=== PATIENT | female | born 1940 | race Caucasian/White ===

== ENCOUNTER 2024-07-08 02:18 | Inpatient (IN) | payer MEDICARE, BC ==
--- NOTE | 2024-07-08 02:56 | ED ---
General Adult HPI - General Chief complaint: Recheck/Abnormal Lab/Rx Stated complaint: Fall, UTI Time Seen by Provider: 07/08/24 02:40 Source: EMS Mode of arrival: EMS - History of Present Illness Initial comments: 84-year-old female who presents to the emergency department as a transfer from [facility]. Patient was taken into their facility as a trauma. She came in from assisted living facility. It was reported that the patient was ambulating and assisting her when their walkers gotten tangled and she fell to the ground. She landed on her right side. States she had pain in her knee. Denies head injury. No neck or back pain. Did not lose consciousness. She does take Coumadin for A-fib. At that facility the patient did have laboratory studies, CT head and neck. Also had x-rays of the chest and knee. No traumatic injuries although patient was found to have an TOMMY, increased lactic acid and a UTI. Troponin was 0.037. They felt that the patient needed to be transferred for higher level of care and therefore transfer the patient to our facility. Patient arrives with no complaints. - Related Data Home Medications Medication Instructions Recorded Confirmed Acetaminophen Tab [Tylenol] 650 mg PO Q4H PRN 07/08/24 07/08/24 Aspirin 81 mg PO DAILY 07/08/24 07/08/24 Calcium Carbonate [Tums] 1,000 mg PO Q2H PRN MDD 4 doses 07/08/24 07/08/24 Furosemide [Lasix] 40 mg PO DAILY 07/08/24 07/08/24 Ipratropium-Albuterol Nebulize 3 ml INHALATION RT-Q6H PRN 07/08/24 07/08/24 [Duoneb 0.5 mg-3 mg/3 ml Soln] Losartan Potassium [Cozaar] 100 mg PO DAILY 07/08/24 07/08/24 Magnesium Hydroxide [Milk of 2,400 mg PO DAILY PRN 07/08/24 07/08/24 Magnesia] Ondansetron Odt [Zofran Odt] 4 mg PO Q4H PRN 07/08/24 07/08/24 Potassium Chloride [Klor-Con M20] 20 meq PO DAILY 07/08/24 07/08/24 Pravastatin Sodium [Pravachol] 40 mg PO HS 07/08/24 07/08/24 Primidone 50 mg PO DAILY 07/08/24 07/08/24 Primidone [Mysoline] 100 mg PO HS 07/08/24 07/08/24 Propranolol HCl [Propranolol HCl 120 mg PO DAILY 07/08/24 07/08/24 ER] Propylene Glycol/Peg 400 [Systane 1 drop BOTH EYES TID 07/08/24 07/08/24 Ultra 0.4-0.3% Eye Drp] Sennosides/Docusate Sodium [Senna 1 tab PO DAILY PRN 07/08/24 07/08/24 Plus 8.6-50 mg Tablet] Sertraline [Zoloft] 50 mg PO DAILY 07/08/24 07/08/24 Warfarin Sodium 8 mg PO DAILY@1700 07/08/24 07/08/24 bisacodyL [Dulcolax] 10 mg RECTAL DAILY PRN 07/08/24 07/08/24 guaiFENesin SYRUP 100MG/5ML 100 mg PO Q4H PRN 07/08/24 07/08/24 [Robitussin] hydroCHLOROthiazide [Hydrodiuril] 25 mg PO DAILY 07/08/24 07/08/24 metFORMIN HCL [Glucophage] 1,000 mg PO BID 07/08/24 07/08/24 polyethylene glycoL 3350 [Miralax] 17 gm PO DAILY PRN 07/08/24 07/08/24 Allergies Allergy/AdvReac Type Severity Reaction Status Date / Time peanut Allergy Unknown Verified 07/08/24 11:17 atorvastatin [From Lipitor] AdvReac Mild Muscle Verified 07/08/24 11:17 Aches Review of Systems ROS Statement: Those systems with pertinent positive or pertinent negative responses have been documented in the HPI. ROS Other: All systems not noted in ROS Statement are negative. Past Medical History Past Medical History: Atrial Fibrillation, Hyperlipidemia, Hypertension Past Surgical History: No Surgical Hx Reported Past Alcohol Use History: None Reported Past Drug Use History: None Reported General Exam General appearance: alert, in no apparent distress Head exam: Present: atraumatic, normocephalic, normal inspection Eye exam: Present: normal appearance, PERRL, EOMI. Absent: scleral icterus, conjunctival injection, periorbital swelling ENT exam: Present: normal exam, mucous membranes moist Neck exam: Present: normal inspection. Absent: tenderness, meningismus, lymphadenopathy Respiratory exam: Present: normal lung sounds bilaterally. Absent: respiratory distress, wheezes, rales, rhonchi, stridor Cardiovascular Exam: Present: regular rate, normal rhythm, normal heart sounds. Absent: systolic murmur, diastolic murmur, rubs, gallop, clicks GI/Abdominal exam: Present: soft, normal bowel sounds. Absent: distended, tenderness, guarding, rebound, rigid Extremities exam: Present: full ROM, tenderness (To the right knee. Patient does have compression wrap in place. 2+ DP and PT pulses. Compartments are soft), normal capillary refill. Absent: pedal edema, joint swelling, calf tenderness Back exam: Present: normal inspection Neurological exam: Present: alert, oriented X3, CN II-XII intact Psychiatric exam: Present: normal affect, normal mood Skin exam: Present: warm, dry, intact, normal color. Absent: rash Course Vital Signs 07/08/24 07/08/24 07/08/24 02:35 04:36 09:18 Temperature 98.3 F 98.5 F Pulse Rate 58 L 57 L 57 L Respiratory 16 16 24 Rate Blood Pressure 181/91 166/73 146/74 O2 Sat by Pulse 96 97 94 L Oximetry 07/08/24 12:34 Temperature 98.7 F Pulse Rate 60 Respiratory 20 Rate Blood Pressure 150/55 O2 Sat by Pulse 95 Oximetry Medical Decision Making - Medical Decision Making Was pt. sent in by a medical professional or institution (WILL Zhou, LAND AGENT, urgent care, hospital, or longterm...) When possible be specific @ -Patient sent from [facility] Did you speak to anyone other than the patient for history (EMS, parent, family, police, friend...)? What history was obtained from this source @ -I spoke with transferring provider from [facility] Did you review nursing and triage notes (agree or disagree)? Why? @ -I reviewed and agree with nursing and triage notes Were old charts reviewed (outside hosp., previous admission, EMS record, old EKG, old radiological studies, urgent care reports/EKG's, longterm records)? Report findings @ -I reviewed the transfer paperwork from [facility]. This includes the patient's EKG which demonstrates A-fib with a slow ventricular rate. Patient had blood work and a urinalysis. Urinalysis did demonstrate few bacteria with 1+ leukocytes. Troponin was 0.037. Lactic acid was 3.4. Creatinine was 1.6. Patient was given Rocephin and a liter bolus normal saline. 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 CT of the head and neck demonstrated no acute findings but x-ray of the right knee demonstrates no acute findings Differential Diagnosis (chest pain, altered mental status, abdominal pain women, abdominal pain men, vaginal bleeding, weakness, fever, dyspnea, syncope, headache, dizziness, GI bleed, back pain, seizure, CVA, palpatations, mental health, musculoskeletal)? @ -Differential Musculoskeletal Muscular strain, contusion, ligament sprain, fracture, arthritis, septic arthritis, bursitis, cellulitis, muscle spasm, nerve compression, DVT, arterial occlusion, herpes zoster, electrolyte abnormality, tumor.... This is not meant to be in all inclusive list EKG interpreted by me (3pts min.). @ -Yes and demonstrates A-fib with a rate of 60. QRS 93. QTc of 396. No acute ST segment elevations or depressions X-rays interpreted by me (1pt min.). @ -None done CT interpreted by me (1pt min.). @ -None done U/S interpreted by me (1pt. min.). @ -None done What testing was considered but not performed or refused? (CT, X-rays, U/S, labs)? Why? @ -None What meds were considered but not given or refused? Why? @ -None Did you discuss the management of the patient with other professionals (professionals i.e. , PA, LAND AGENT, lab, RT, psych nurse, social worker psychiatric, hat lining paster, teacher, education officer, case management assistant)? Give summary @ -Spoke with Dr. Badillo for admission Was smoking cessation discussed for >3mins.? @ -No Was critical care preformed (if so, how long)? @ -No Were there social determinants of health that impacted care today? How? (Homelessness, low income, unemployed, alcoholism, drug addiction, transportation, low edu. Level, literacy, decrease access to med. care, longterm, rehab)? @ -Patient resides in rehab Was there de-escalation of care discussed even if they declined (Discuss DNR or withdrawal of care, Hospice)? DNR status @ -No What co-morbidities impacted this encounter? (DM, HTN, Smoking, COPD, CAD, Cancer, CVA, ARF, Chemo, Hep., AIDS, mental health diagnosis, sleep apnea, morbid obesity)? @ -A-fib on anticoagulation Was patient admitted / discharged? Hospital course, mention meds given and ro luis felipe, prescriptions, significant lab abnormalities, going to OR and other pertinent info. @ -Upon arrival patient seen and evaluated in bed 1. I did review the patient's transfer packet. I did repeat lactic acid and troponin levels. Patient is currently awaiting a bed on the floor in stable condition. I spoke with Dr. Badillo for the admission Undiagnosed new problem with uncertain prognosis? @ -No Drug Therapy requiring intensive monitoring for toxicity (Heparin, Nitro, Insulin, Cardizem)? @ -No Were any procedures done? @ -No Diagnosis/symptom? @ -Acute fall, right knee pain, TOMMY, abnormal UA Acute, or Chronic, or Acute on Chronic? @ -Acute Uncomplicated (without systemic symptoms) or Complicated (systemic symptoms)? @ -Complicated Side effects of treatment? @ -Allergic reaction Exacerbation, Progression, or Severe Exacerbation? @ -No Poses a threat to life or bodily function? How? (Chest pain, USA, SD, pneumonia, PE, COPD, DKA, ARF, appy, cholecystitis, CVA, Diverticulitis, Homicidal, Suicidal, threat to staff... and all critical care pts) @ -No - Lab Data Result diagrams: 07/08/24 04:24 07/08/24 04:24 Disposition Clinical Impression: Fall, Elevated troponin I level, Right knee pain, UTI (urinary tract infection), TOMMY (acute kidney injury) Disposition: ADMITTED IP TO THIS HOSP Condition: Stable Is patient prescribed a controlled substance at d/c from ED?: No Time of Disposition: 03:48 Decision to Admit Reason: Admit from EC Decision Date: 07/08/24 Decision Time: 03:48
[2024-07-08] MEDS ORDERED: NALOXONE 0.4 MG/ML 1 ML VIAL IV PRN (03:48)
[2024-07-08] MEDS: SODIUM CHLORIDE 0.9% 1,000 ML IV SCH (04:35)
[2024-07-08 04:47] LABS: Basophils # (A) 0.05 10*3/uL (0.00-0.10); Basophils % (A) 0.5 %; Eosinophils # (A) 0.44 10*3/uL (0.04-0.35); Eosinophils % (A) 4.4 %; HCT 33.1 % (37.2-46.3); HGB 11.2 g/dL (12.0-15.0); Lymphocytes # (A) 1.06 10*3/uL (0.90-5.00); Lymphocytes % (A) 10.6 %; MCH 31.9 pg (27.0-32.0); MCHC 33.8 g/dL (32.0-37.0); MCV 94.3 fL (80.0-97.0); Monocytes # (A) 0.83 10*3/uL (0.20-1.00); Monocytes % (A) 8.3 %; Neutrophils # (A) 7.61 10*3/uL (1.80-7.70); Neutrophils % (A) 75.8 %; Platelet Count 160 10*3/uL (140-440); RBC 3.51 10*6/uL (4.10-5.20); RDW 13.4 % (11.5-14.5); WBC 10.03 10*3/uL (4.50-10.00)
[2024-07-08 05:10] LABS: ALT 29 U/L (4-34); AST 33 U/L (14-36); African American GFR (CKD) 36 (>60 ml/min/1.73 sqM); Albumin 3.7 g/dL (3.5-5.0); Alkaline Phosphatase 79 U/L (38-126); Anion Gap 7 mmol/L; Blood Urea Nitrogen 50 mg/dL (7-17); Calcium 9.4 mg/dL (8.4-10.2); Carbon Dioxide 35 mmol/L (22-30); Chloride 93 mmol/L (98-107); Glucose 108 mg/dL (74-99); Non-African American GFR(CKD) 31 (>60 ml/min/1.73 sqM); Potassium 3.5 mmol/L (3.5-5.1); Sodium 135 mmol/L (137-145); Total Bilirubin 0.6 mg/dL (0.2-1.3); Total Protein 6.6 g/dL (6.3-8.2)
[2024-07-08] MEDS: SODIUM CHLORIDE 0.9% 1,000 ML IV ONE (05:54)
--- NOTE | 2024-07-08 12:59 | P.CRDCN ---
History of Present Illness Consult date: 07/08/24 Reason for Consult (text): Elevated troponin History of present illness: This is an 84-year-old female, does not follow in our office with a past medical history of persistent atrial fibrillation, hypertension, hyperlipidemia. We have been asked to evaluate the patient for elevated troponins. Patient was initially seen at [facility] after a fall when her walker was tangled up with her 's walker. She had a fall onto her right side with right knee pain. No head injury. Patient did not lose consciousness. She underwent CAT scan of the head and neck as well as x-rays of the chest and knee that were all negative. She was found to have TOMMY and lactic acidosis and UTI. Her troponin was elevated and thus patient was transferred to [facility] for further evaluation. Patient is unable to provide any history. Blood pressure 150/55, heart rate in the 50s, pulse ox 95% on 2 L nasal cannula, afebrile. Patient is status post 1 L of IV fluids. She is seen today in the emergency center waiting for a bed on the observation unit. -EKG: Atrial fibrillation at 60 bpm. -Chest x-ray: Negative reported at [facility]. -Laboratory studies: WBC 10, hemoglobin 11.2, sodium 135, potassium 3.5, CO2 35, BUN 50 creatinine 1.53. Lactic acid 2.8 followed by 2.0. Troponin 0.031, 0.042 and 0.043. Liver function test are within normal limits. -Home cardiac medications: Aspirin 81 mg daily, Lasix 40 mg daily, hydrochlo rothiazide 25 mg daily, losartan 100 mg daily, potassium chloride 20 mill equivalents daily, pravastatin 40 mg at bedtime, propranolol 120 mg daily, warfarin 8 mg daily. Review Of Systems: At the time of my exam: Unable to obtain from the patient. Physical examination: Gen: This is 84-year-old female in no acute respiratory distress. VS: reviewed HEENT: Head is atraumatic, normocephalic. Pupils equal, round. Sclerae is anicteric. NECK: Supple. No JVD. LUNGS: Clear to auscultation. No wheezes or rhonchi. No intercostal retractions. HEART: Irregular rate and rhythm. Mild systolic murmur at the right sternal border. ABDOMEN: Soft No tenderness. EXTREMITIES: 2+ bilateral lower extremity edema appears to be chronic. No calf tenderness. NEUROLOGICAL: Patient is awake, confused. Assessment: Mechanical fall with no LOC Flat troponin elevation secondary to acute kidney injury Acute kidney injury Lactic acidosis Persistent atrial fibrillation with controlled rate Failure to thrive Hypertension Hyperlipidemia Chronic lower extremity edema Possible metabolic encephalopathy, baseline mentation unknown Plan: Resume patient's home cardiac medications with the following changes Hold aspirin, diuretics including Lasix and hydrochlorothiazide, beta-mihir Resume warfarin, pharmacy to dose Decrease losartan to 50 mg daily No plan for IV heparin Obtain proBNP, A1c, TSH, lipid panel Obtain 2-D echocardiogram and Doppler study to assess cardiac structure and function Further recommendations to follow based upon clinical course Thank you kindly for this consultation. Nurse practitioner note has been reviewed, I agree with documented findings and plan of care. Patient was seen and examined. Past Medical History Past Medical History: Atrial Fibrillation, Hyperlipidemia, Hypertension Past Surgical History: No Surgical Hx Reported Past Alcohol Use History: None Reported Past Drug Use History: None Reported Medications and Allergies Home Medications Medication Instructions Recorded Confirmed Type Acetaminophen Tab [Tylenol] 650 mg PO Q4H PRN 07/08/24 07/08/24 History Aspirin 81 mg PO DAILY 07/08/24 07/08/24 History Calcium Carbonate [Tums] 1,000 mg PO Q2H PRN MDD 4 doses 07/08/24 07/08/24 History Furosemide [Lasix] 40 mg PO DAILY 07/08/24 07/08/24 History Ipratropium-Albuterol Nebulize 3 ml INHALATION RT-Q6H PRN 07/08/24 07/08/24 History [Duoneb 0.5 mg-3 mg/3 ml Soln] Losartan Potassium [Cozaar] 100 mg PO DAILY 07/08/24 07/08/24 History Magnesium Hydroxide [Milk of 2,400 mg PO DAILY PRN 07/08/24 07/08/24 History Magnesia] Ondansetron Odt [Zofran Odt] 4 mg PO Q4H PRN 07/08/24 07/08/24 History Potassium Chloride [Klor-Con M20] 20 meq PO DAILY 07/08/24 07/08/24 History Pravastatin Sodium [Pravachol] 40 mg PO HS 07/08/24 07/08/24 History Primidone 50 mg PO DAILY 07/08/24 07/08/24 History Primidone [Mysoline] 100 mg PO HS 07/08/24 07/08/24 History Propranolol HCl [Propranolol HCl 120 mg PO DAILY 07/08/24 07/08/24 History ER] Propylene Glycol/Peg 400 [Systane 1 drop BOTH EYES TID 07/08/24 07/08/24 History Ultra 0.4-0.3% Eye Drp] Sennosides/Docusate Sodium [Senna 1 tab PO DAILY PRN 07/08/24 07/08/24 History Plus 8.6-50 mg Tablet] Sertraline [Zoloft] 50 mg PO DAILY 07/08/24 07/08/24 History Warfarin Sodium 8 mg PO DAILY@1700 07/08/24 07/08/24 History bisacodyL [Dulcolax] 10 mg RECTAL DAILY PRN 07/08/24 07/08/24 History guaiFENesin SYRUP 100MG/5ML 100 mg PO Q4H PRN 07/08/24 07/08/24 History [Robitussin] hydroCHLOROthiazide [Hydrodiuril] 25 mg PO DAILY 07/08/24 07/08/24 History metFORMIN HCL [Glucophage] 1,000 mg PO BID 07/08/24 07/08/24 History polyethylene glycoL 3350 [Miralax] 17 gm PO DAILY PRN 07/08/24 07/08/24 History Allergies Allergy/AdvReac Type Severity Reaction Status Date / Time peanut Allergy Unknown Verified 07/08/24 11:17 atorvastatin [From Lipitor] AdvReac Mild Muscle Verified 07/08/24 11:17 Aches Physical Exam Vitals: Vital Signs Temp Pulse Resp BP Pulse Ox 07/08/24 09:18 98.5 F 57 L 24 146/74 94 L 07/08/24 04:36 57 L 16 166/73 97 07/08/24 02:35 98.3 F 58 L 16 181/91 96 Intake and Output 07/07/24 07/08/24 07/08/24 22:59 06:59 14:59 Other: Weight 61.235 kg Results 07/08/24 04:24 07/08/24 04:24 Cardiac Enzymes 07/08/24 07/08/24 07/08/24 Range/Units 04:24 04:24 06:06 AST 33 (14-36) U/L Troponin I 0.031 0.042 H* (0.000-0.034) ng/mL 07/08/24 Range/Units 09:00 AST (14-36) U/L Troponin I 0.043 H* (0.000-0.034) ng/mL CBC 07/08/24 Range/Units 04:24 WBC 10.03 H (4.50-10.00) 10*3/uL RBC 3.51 L (4.10-5.20) 10*6/uL Hgb 11.2 L (12.0-15.0) g/dL Hct 33.1 L (37.2-46.3) % Plt Count 160 (140-440) 10*3/uL Comprehensive Metabolic Panel 07/08/24 Range/Units 04:24 Sodium 135 L (137-145) mmol/L Potassium 3.5 (3.5-5.1) mmol/L Chloride 93 L (98-107) mmol/L Carbon Dioxide 35 H (22-30) mmol/L BUN 50 H (7-17) mg/dL Creatinine 1.53 H (0.52-1.04) mg/dL Glucose 108 H (74-99) mg/dL Calcium 9.4 (8.4-10.2) mg/dL AST 33 (14-36) U/L ALT 29 (4-34) U/L Alkaline Phosphatase 79 (38-126) U/L Total Protein 6.6 (6.3-8.2) g/dL Albumin 3.7 (3.5-5.0) g/dL Current Medications Generic Name Dose Route Start Last Admin Trade Name Freq PRN Reason Stop Dose Admin Acetaminophen 650 mg 07/08/24 03:48 Acetaminophen Tab 325 Mg Tab PO Q6HR PRN Mild Pain or Fever > 100.5 Sodium Chloride 1,000 mls @ 75 mls/hr 07/08/24 04:00 07/08/24 04:35 Saline 0.9% IV 75 mls/hr .[id number] ARLENE Administration Naloxone HCl 0.2 mg 07/08/24 03:48 Naloxone 0.4 Mg/Ml 1 Ml Vial IV Q2M PRN Opioid Reversal Intake and Output 07/07/24 07/08/24 07/08/24 22:59 06:59 14:59 Other: Weight 61.235 kg 07/08/24 04:24 07/08/24 04:24
[2024-07-08 13:26] LABS: INR 1.6 (<1.2); Prothrombin Time 16.4 sec (10.0-12.5)
[2024-07-08] MEDS: LOSARTAN 50 MG TAB PO SCH (17:27)
[2024-07-08] MEDS: WARFARIN 2 MG TAB PO SCH (17:28)
[2024-07-08 19:09] LABS: Chol/HDL Ratio 1.66 Ratio; LDL Cholesterol,Calculated 46.2 mg/dL (0.0-131.0); VLDL Calculation 16.06 mg/dL (5.00-40.00)
[2024-07-08 21:43] LABS: NT-Pro-B-Type Natriuretic Pept 4601 pg/mL (0-450)
[2024-07-09 04:49] LABS: INR 1.4 (<1.2)
[2024-07-09 10:27] LABS: Basophils # (A) 0.04 X 10*3/uL (0.00-0.10); Basophils % (A) 0.7 %; Eosinophils # (A) 0.47 X 10*3/uL (0.04-0.35); Eosinophils % (A) 7.8 %; HCT 28.6 % (37.2-46.3); HGB 9.2 g/dL (12.0-15.0); Lymphocytes # (A) 1.48 X 10*3/uL (0.90-5.00); Lymphocytes % (A) 24.4 %; MCH 31.3 pg (27.0-32.0); MCHC 32.2 g/dL (32.0-37.0); MCV 97.3 FL (80.0-97.0); Monocytes # (A) 0.58 X 10*3/uL (0.20-1.00); Monocytes % (A) 9.6 %; NRBC Per 100 WBC 0 X 10*3/uL (0.00-0.01); Neutrophils # (A) 3.48 X 10*3/uL (1.80-7.70); Neutrophils % (A) 57.3 %; Platelet Count 162 X 10*3/uL (140-440); RBC 2.94 X 10*6/uL (4.10-5.20); RDW 13.8 % (11.5-14.5); WBC 6.06 X 10*3/uL (4.50-10.00)
[2024-07-09] MEDS ORDERED: guaiFENesin SYRUP 100MG/5ML 200 MG/10 ML CUP PO PRN (10:40)
[2024-07-09] MEDS ORDERED: polyethylene glycoL 3350 17 GM POWD.PACK PO PRN (10:40)
[2024-07-09] MEDS ORDERED: ONDANSETRON ODT 4 MG TAB PO PRN (10:40)
[2024-07-09] MEDS ORDERED: MAGNESIUM HYDROXIDE 2,400 MG/30 ML CUP PO PRN (10:40)
[2024-07-09] MEDS ORDERED: SENNOSIDES-DOCUSATE SODIUM 1 EACH TAB PO PRN (10:40)
[2024-07-09] MEDS ORDERED: IPRATROPIUM-ALBUTEROL 3 ML NEB INHALATION PRN (10:40)
[2024-07-09 11:17] LABS: BUN/Creat Ratio 26.86 Ratio (12.00-20.00); Blood Urea Nitrogen 37.6 mg/dL (9.0-27.0); Calcium 8.3 mg/dL (8.7-10.3); Carbon Dioxide 31.8 mmol/L (21.6-31.8); Chloride 100 mmol/L (96-109); Glucose 121 mg/dL (70-110); Potassium 3.2 mmol/L (3.5-5.5); Sodium 142 mmol/L (135-145)
--- NOTE | 2024-07-09 11:18 | P.PN ---
Subjective Progress Note Date: 07/09/24 Reason for Consult (text): Elevated troponin History of present illness: This is an 84-year-old female, does not follow in our office with a past medical history of persistent atrial fibrillation, hypertension, hyperlipidemia. We have been asked to evaluate the patient for elevated troponins. Patient was initially seen at [facility] after a fall when her walker was tangled up with her 's walker. She had a fall onto her right side with right knee pain. No head injury. Patient did not lose consciousness. She underwent CAT scan of the head and neck as well as x-rays of the chest and knee that were all negative. She was found to have TOMMY and lactic acidosis and UTI. Her troponin was elevated and thus patient was transferred to [facility] for further evaluation. Patient is unable to provide any history. Blood pressure 150/55, heart rate in the 50s, pulse ox 95% on 2 L nasal cannula, afebrile. Patient is status post 1 L of IV fluids. She is seen today in the emergency center waiting for a bed on the observation unit. -EKG: Atrial fibrillation at 60 bpm. -Chest x-ray: Negative reported at [facility]. -Laboratory studies: WBC 10, hemoglobin 11.2, sodium 135, potassium 3.5, CO2 35, BUN 50 creatinine 1.53. Lactic acid 2.8 followed by 2.0. Troponin 0.031, 0.042 and 0.043. Liver function test are within normal limits. -Home cardiac medications: Aspirin 81 mg daily, Lasix 40 mg daily, hydrochlorothiazide 25 mg daily, losartan 100 mg daily, potassium chloride 20 mill equivalents daily, pravastatin 40 mg at bedtime, propranolol 120 mg daily, warfarin 8 mg daily. 07/08 Patient seen and examined on the observation unit. Blood pressure 147/58, heart rate in the 50s and 60s, pulse ox 99% on 2 L nasal cannula. Patient has been afebrile. Triglycerides 80, cholesterol 156, LDL 46, proBNP 4601. A1c 5.6 INR 1.4. Patient's mental status is much improved from yesterday. She states she feels well this morning except that her leg is bothering her from the fall. Patient denies chest pain no chest pressure, no shortness of breath. Noted that her previous creatinine was 1.6 at [place] we will plan to resume Lasix tomorrow. Physical examination: Gen: This is 84-year-old female in no acute respiratory distress. VS: reviewed HEENT: Head is atraumatic, normocephalic. Pupils equal, round. Sclerae is anicteric. NECK: Supple. No JVD. LUNGS: Clear to auscultation. No wheezes or rhonchi. No intercostal retractions. HEART: Irregular rate and rhythm. Mild systolic murmur at the right sternal border. ABDOMEN: Soft No tenderness. EXTREMITIES: 2+ bilateral lower extremity edema appears to be chronic. No calf tenderness. NEUROLOGICAL: Patient is awake, alert and oriented. Assessment: Mechanical fall with no LOC Flat troponin elevation secondary to acute kidney injury Acute kidney injury Lactic acidosis Persistent atrial fibrillation with controlled rate Failure to thrive Hypertension Hyperlipidemia Chronic lower extremity edema Possible metabolic encephalopathy, resolved Plan: Continue patient's home cardiac medications with the following changes Hold aspirin and hydrochlorothiazide Resume losartan back to 100 mg daily- her home dose Resume Lasix tomorrow Continue warfarin, pharmacy to dose Obtain 2-D echocardiogram and Doppler study to assess cardiac structure and function If echocardiogram is unremarkable, patient is cleared for discharge and may follow-up with her primary channel rougher. Nurse practitioner note has been reviewed, I agree with documented findings and plan of care. Patient was seen and examined. Objective - Vital Signs Vital signs: Vital Signs Temp 97.3 F L 07/09/24 07:25 Pulse 56 L 07/09/24 07:25 Resp 15 07/09/24 07:25 BP 147/58 07/09/24 07:25 Pulse Ox 99 07/09/24 07:25 FiO2 Intake & Output 07/08/24 07/09/24 07/09/24 18:59 06:59 18:59 Intake Total 540 180 Balance 540 180 Weight 61.235 kg 67 kg Intake: Oral 540 180 Other: Voiding Method Toilet Toilet # Voids 1 2 # Bowel Movements 1 - Labs CBC & Chem 7: 07/09/24 03:46 07/08/24 04:24 Labs: Abnormal Lab Results - Last 24 Hours (Table) 07/08/24 07/08/24 07/08/24 Range/Units 09:00 13:10 13:10 PT 16.4 H (10.0-12.5) sec INR 1.6 H (<1.2) Troponin I 0.043 H* (0.000-0.034) ng/mL NT-Pro-B Natriuret Pep 4601 H (0-450) pg/mL HDL Cholesterol 93.70 H (40.00-60.00) mg/dL 07/09/24 Range/Units 03:46 PT 15.0 H (10.0-12.5) sec INR 1.4 H (<1.2) Troponin I (0.000-0.034) ng/mL NT-Pro-B Natriuret Pep (0-450) pg/mL HDL Cholesterol (40.00-60.00) mg/dL
[2024-07-09] MEDS: LOSARTAN 50 MG TAB PO STA (11:20)
[2024-07-09] MEDS: PRIMIDONE 50 MG TAB PO SCH ×2 (11:20→20:49)
[2024-07-09] MEDS: SERTRALINE 50 MG TAB PO SCH (11:20)
--- NOTE | 2024-07-09 12:58 | CA ---
Transthoracic Echo Report Name: Christie Her Age: 84 Gender: F : 1940 Exam Date: 07/09/2024 09:09 Exam Location: [facility] Ht (in): 62 Wt (lb): 147 Ordering Physician: Amanda Gutiérrez Attending/Referring Phys: [id number], Marla Case Checker Gracie Walls RDCS Procedure CPT: Indications: LVF Cardiac Hx: Technical Quality: Fair Contrast 1: Total Dose (mL): Contrast 2: Total Dose (mL): MEASUREMENTS (Male / Female) Normal Values 2D ECHO LV Diastolic Diameter PLAX 5.4 cm 4.2 - 5.9 / 3.9 - 5.3 cm LV Systolic Diameter PLAX 4.0 cm IVS Diastolic Thickness 0.8 cm 0.6 - 1.0 / 0.6 - 0.9 cm LVPW Diastolic Thickness 1.1 cm 0.6 - 1.0 / 0.6 - 0.9 cm LV Relative Wall Thickness 0.3 LVOT Diameter 1.9 cm LV Diastolic Volume MOD BP 112.0 cm??? 67 - 155 / 56 - 104 cm??? LV Systolic Volume MOD BP 47.1 cm??? 22 - 58 / 19 - 49 cm??? LV Ejection Fraction MOD BP 57.9 % >= 55 % LV Cardiac Index MOD BP 2442.0 cm???/min???m??? LV Diastolic Volume MOD 4C 99.9 cm??? LV Systolic Volume MOD 4C 43.7 cm??? LV Ejection Fraction MOD 4C 56.3 % LV Cardiac Index MOD 4C 2120.0 cm???/min???m??? LV Diastolic Length 4C 8.3 cm LV Systolic Length 4C 7.4 cm LV Diastolic Volume MOD 2C 120.2 cm??? LV Systolic Volume MOD 2C 49.9 cm??? LV Ejection Fraction MOD 2C 58.4 % LV Cardiac Index MOD 2C 2646.9 cm???/min???m??? LV Diastolic Length 2C 8.7 cm LV Systolic Length 2C 7.3 cm LA Volume 76.7 cm??? 18 - 58 / 22 - 52 cm??? LA Volume Index 44.5 cm???/m??? 16 - 28 cm???/m??? DOPPLER AV Peak Velocity 184.1 cm/s AV Peak Gradient 13.6 mmHg AV Mean Velocity 129.9 cm/s AV Mean Gradient 7.6 mmHg AV Velocity Time Integral 42.1 cm LVOT Peak Velocity 81.6 cm/s LVOT Peak Gradient 2.7 mmHg LVOT Velocity Time Integral 18.5 cm LVOT Stroke Volume 52.6 cm??? LVOT Stroke Volume Index 31.3 ml/m??? LVOT Cardiac Index 1980.3 cm???/min???m??? AV Area Cont Eq vti 1.2 cm??? AV Area Cont Eq pk 1.3 cm??? MV Area PHT 4.7 cm??? Mitral E Point Velocity 92.5 cm/s Mitral A Point Velocity 35.6 cm/s Mitral E to A Ratio 2.6 MV Deceleration Time 162.9 ms TR Peak Velocity 305.8 cm/s TR Peak Gradient 37.4 mmHg Right Atrial Pressure 5.0 mmHg Pulmonary Artery Systolic Pressu 42.4 mmHg Right Ventricular Systolic Press 42.4 mmHg PV Peak Velocity 104.0 cm/s PV Peak Gradient 4.3 mmHg FINDINGS Left Ventricle Left ventricular ejection fraction is estimated at 55-60 %. Mildly increased posterior wall thickness. Mildly increased left ventricular diastolic volume. No obvious regional wall motion abnormalities. Right Ventricle Right ventricular dilatation. Mildly reduced right ventricular global systolic function. Mild pulmonary hypertension. Right Atrium Severe right atrial dilatation. Left Atrium Severely increased left atrial volume. Mildly increased left atrial area. Mitral Valve Mitral valve thickened. No evidence for mitral valve prolapse. No mitral stenosis. Mild mitral regurgitation. Aortic Valve Trileaflet aortic valve. No aortic stenosis. Mild aortic regurgitation. Tricuspid Valve Structurally normal tricuspid valve. No tricuspid stenosis. Trace to mild tricuspid regurgitation. Pulmonic Valve Pulmonic valve not well visualized. No pulmonic stenosis. Trace pulmonic regurgitation. Pericardium No pericardial effusion. Aorta Normal size aortic root and proximal ascending aorta. CONCLUSIONS Left ventricular ejection fraction 55 to 60% RVSP 42 Moderately dilated left atrium Mild mitral regurgitation Mild aortic regurgitation No pericardial effusion Previewed by: Dr. Kan Moreno DO (Electronically Signed) Final Date: 09 July 2024 12:58
[2024-07-09] MEDS ORDERED: Potassium Replacement Protocol 1 EACH MISC MISCELLANE PRN (13:39)
[2024-07-09] MEDS ORDERED: DEXTROSE 50% SYRINGE 50 ML IVP PRN ×2 (13:58)
--- NOTE | 2024-07-09 13:58 | P.HPIM ---
History of Present Illness H&P Date: 07/09/24 History of present illness: 84-year-old female with past medical history significant for atrial fibrillation on Coumadin, hypertension, hyperlipidemia who was transferred from [facility] where patient was taken as a trauma. Patient lives at assisted living facility. Patient was ambulating and assisting her when walker got tangled and patient fell to the ground, patient landed on right side. Patient reported pain in her right knee, denied any head injury or loss of consciousne ss, denied any back pain,. CT head and CTA neck was negative for acute process. X-ray chest and knee was also negative for any acute process fractures or dislocation. Patient was noted to have acute kidney injury with increased lactate acid and UTI and elevated troponin at the facility and patient was transferred to [facility] for further evaluation and management. Patient is afebrile, heart rate 56, respiratory rate 15, blood pressure 144/58, saturating 99% on 2 L. WBC 6.0, hemoglobin 9.2, platelet 162. INR 1.4 Sodium 142 potassium 3.2 BUN 37 creatinine 1.4 troponin 0.041, 0.043 proBNP 4600. Assessment and plan: Mechanical fall: Metabolic encephalopathy: Resolved Lactic acidosis Failure to thrive Imaging studies including CT head, neck, x-ray chest, x-ray knee negative for acute process. Fall precautions PT/OT consult Elevated troponin: Demand ischemia Paroxysmal atrial fibrillation: On Coumadin Hypertension Hyperlipidemia Chronic lower extremity edema Troponin trend remained flat, EKG unremarkable. Cardiology consultedhold aspirin, hydrochlorothiazide, resume losartan, resume Lasix tomorrow Echocardiogram--EF 55 to 60%, RVSP 42, mild MR, mild AR. Acute kidney injury: Unknown baseline, likely CKD Avoid nephrotoxin Monitor renal function DVT prophylaxis Anticoagulated with Coumadin Monitor vital signs and labs Labs and medication were reviewed. Continue same treatment. Further recommendations as per clinical course of the patient PHYSICAL EXAMINATION: GENERAL: The patient is A&O x3, NAD HEENT: EOMI, Sclerae anicteric, Moist Mucous membranes Neck: Supple, Non tender, No JVD PULMONARY: Equal breath souds B/L, No wheezing, No crackles. CARDIOVASCULAR: S1, S2 present. No murmurs, rubs, or gallops. ABDOMEN: Soft, nontender, nondistended, normoactive bowel sounds. No guarding or rebound tenderness. MUSCULOSKELETAL: +edema, No cyanosis. No clubbing. Normal ROM. Intact peripheral pulses. NEUROLOGICAL: CN 2-12 grossly intact. No FND REVIEW OF SYSTEMS: CONSTITUTIONAL: No fever, no malaise, no fatigue. HEENT: No recent visual problems or hearing problems. Denied any sore throat. CARDIOVASCULAR: No chest pain, orthopnea, PND, no palpitations, no syncope. PULMONARY: No shortness of breath, no cough, no hemoptysis. GASTROINTESTINAL: No diarrhea, no nausea, no vomiting, no abdominal pain. NEUROLOGICAL: No headaches, no weakness, no numbness. HEMATOLOGICAL: Denies any bleeding or petechiae. GENITOURINARY: Denies any burning micturition, frequency, or urgency. MUSCULOSKELETAL/RHEUMATOLOGICAL: Denies any joint pain, swelling, or any muscle pain. ENDOCRINE: Denies any polyuria or polydipsia. The rest of the 14-point review of systems is negative. Dictation was produced using [employer] dictation software. please excuse any gram matical, word or spelling errors. Past Medical History Past Medical History: Atrial Fibrillation, Hyperlipidemia, Hypertension History of Any Multi-Drug Resistant Organisms: None Reported Past Surgical History: No Surgical Hx Reported Past Anesthesia/Blood Transfusion Reactions: Unable to Obtain Past Alcohol Use History: None Reported Past Drug Use History: None Reported Medications and Allergies Home Medications Medication Instructions Recorded Confirmed Type Acetaminophen Tab [Tylenol] 650 mg PO Q4H PRN 07/08/24 07/08/24 History Aspirin 81 mg PO DAILY 07/08/24 07/08/24 History Calcium Carbonate [Tums] 1,000 mg PO Q2H PRN MDD 4 doses 07/08/24 07/08/24 History Furosemide [Lasix] 40 mg PO DAILY 07/08/24 07/08/24 History Ipratropium-Albuterol Nebulize 3 ml INHALATION RT-Q6H PRN 07/08/24 07/08/24 History [Duoneb 0.5 mg-3 mg/3 ml Soln] Losartan Potassium [Cozaar] 100 mg PO DAILY 07/08/24 07/08/24 History Magnesium Hydroxide [Milk of 2,400 mg PO DAILY PRN 07/08/24 07/08/24 History Magnesia] Ondansetron Odt [Zofran Odt] 4 mg PO Q4H PRN 07/08/24 07/08/24 History Potassium Chloride [Klor-Con M20] 20 meq PO DAILY 07/08/24 07/08/24 History Pravastatin Sodium [Pravachol] 40 mg PO HS 07/08/24 07/08/24 History Primidone 50 mg PO DAILY 07/08/24 07/08/24 History Primidone [Mysoline] 100 mg PO HS 07/08/24 07/08/24 History Propranolol HCl [Propranolol HCl 120 mg PO DAILY 07/08/24 07/08/24 History ER] Propylene Glycol/Peg 400 [Systane 1 drop BOTH EYES TID 07/08/24 07/08/24 History Ultra 0.4-0.3% Eye Drp] Sennosides/Docusate Sodium [Senna 1 tab PO DAILY PRN 07/08/24 07/08/24 History Plus 8.6-50 mg Tablet] Sertraline [Zoloft] 50 mg PO DAILY 07/08/24 07/08/24 History Warfarin Sodium 8 mg PO DAILY@1700 07/08/24 07/08/24 History bisacodyL [Dulcolax] 10 mg RECTAL DAILY PRN 07/08/24 07/08/24 History guaiFENesin SYRUP 100MG/5ML 100 mg PO Q4H PRN 07/08/24 07/08/24 History [Robitussin] hydroCHLOROthiazide [Hydrodiuril] 25 mg PO DAILY 07/08/24 07/08/24 History metFORMIN HCL [Glucophage] 1,000 mg PO BID 07/08/24 07/08/24 History polyethylene glycoL 3350 [Miralax] 17 gm PO DAILY PRN 07/08/24 07/08/24 History Allergies Allergy/AdvReac Type Severity Reaction Status Date / Time peanut Allergy Unknown Verified 07/08/24 11:17 atorvastatin [From Lipitor] AdvReac Mild Muscle Verified 07/08/24 11:17 Aches Physical Exam Vitals: Vital Signs Temp Pulse Pulse Resp BP BP Pulse Ox 07/09/24 07:25 97.3 F L 56 L 15 147/58 99 07/09/24 02:29 66 63 18 07/09/24 00:51 97.7 F 66 18 144/57 100 07/08/24 20:30 69 63 18 07/08/24 18:40 97.6 F 69 18 133/61 100 07/08/24 17:01 97.5 F L 63 16 152/64 07/08/24 16:03 44 L 14 07/08/24 14:07 97.8 F 44 L 14 149/78 Intake and Output 07/08/24 07/09/24 07/09/24 22:59 06:59 14:59 Intake Total 720 Balance 720 Intake: Oral 720 Other: Voiding Method Toilet Toilet # Voids 1 2 1 # Bowel Movements 1 Weight 61.235 kg 67 kg Results CBC & Chem 7: 07/09/24 03:46 07/09/24 03:46 Labs: Abnormal Lab Results - Last 24 Hours (Table) 07/08/24 07/09/24 07/09/24 Range/Units 13:10 03:46 03:46 RBC 2.94 L (4.10-5.20) X 10*6/uL Hgb 9.2 L (12.0-15.0) g/dL Hct 28.6 L (37.2-46.3) % MCV 97.3 H (80.0-97.0) FL Eosinophils # 0.47 H (0.04-0.35) X 10*3/uL PT (10.0-12.5) sec INR (<1.2) Potassium 3.2 L (3.5-5.5) mmol/L BUN 37.6 H (9.0-27.0) mg/dL Est GFR (CKD-EPI) 37 L (>=60) BUN/Creatinine Ratio 26.86 H (12.00-20.00) Ratio Glucose 121 H (70-110) mg/dL Calcium 8.3 L (8.7-10.3) mg/dL NT-Pro-B Natriuret Pep 4601 H (0-450) pg/mL HDL Cholesterol 93.70 H (40.00-60.00) mg/dL 07/09/24 Range/Units 03:46 RBC (4.10-5.20) X 10*6/uL Hgb (12.0-15.0) g/dL Hct (37.2-46.3) % MCV (80.0-97.0) FL Eosinophils # (0.04-0.35) X 10*3/uL PT 15.0 H (10.0-12.5) sec INR 1.4 H (<1.2) Potassium (3.5-5.5) mmol/L BUN (9.0-27.0) mg/dL Est GFR (CKD-EPI) (>=60) BUN/Creatinine Ratio (12.00-20.00) Ratio Glucose (70-110) mg/dL Calcium (8.7-10.3) mg/dL NT-Pro-B Natriuret Pep (0-450) pg/mL HDL Cholesterol (40.00-60.00) mg/dL Thrombosis Risk Factor Assmnt - Choose All That Apply Any of the Below Risk Factors Present?: Yes Each Risk Factor Represents 3 Points: Age 75 years or older Other congenital or acquired thrombophilia - If yes, enter type in comment: No Thrombosis Risk Factor Assessment Total Risk Factor Score: 3 Thrombosis Risk Factor Assessment Level: Moderate Risk
[2024-07-09] MEDS: POTASSIUM CHLORIDE ER 20 MEQ TAB.ER PO SCH (14:03)
[2024-07-09 17:17] LABS: Glucose,Whole Blood 133 mg/dL (70-110)
[2024-07-09] MEDS: INSULIN LISPRO (HumaLOG) 100 UNIT/ML 10 mL VL SQ SCH (18:25)
[2024-07-09 20:24] LABS: Glucose,Whole Blood 142 mg/dL (70-110)
[2024-07-09] MEDS: PRAVASTATIN SODIUM 40 MG TAB PO SCH (20:49)
[2024-07-10 05:02] LABS: INR 1.3 (<1.2); Prothrombin Time 13.5 sec (10.0-12.5)
[2024-07-10 05:42] LABS: Glucose,Whole Blood 145 mg/dL (70-110)
[2024-07-10] MEDS: LOSARTAN 50 MG TAB PO SCH (09:53)
[2024-07-10] MEDS: FUROSEMIDE 40 MG TAB PO SCH (09:54)
[2024-07-10 10:06] LABS: Basophils # (A) 0.06 X 10*3/uL (0.00-0.10); Eosinophils # (A) 0.59 X 10*3/uL (0.04-0.35); Eosinophils % (A) 9.5 %; HCT 27.6 % (37.2-46.3); HGB 8.9 g/dL (12.0-15.0); Lymphocytes # (A) 1.32 X 10*3/uL (0.90-5.00); Lymphocytes % (A) 21.3 %; MCH 31.4 pg (27.0-32.0); MCHC 32.2 g/dL (32.0-37.0); MCV 97.5 FL (80.0-97.0); Mean Platelet Volume 12.6 FL (9.5-12.2); Monocytes # (A) 0.57 X 10*3/uL (0.20-1.00); Monocytes % (A) 9.2 %; NRBC Per 100 WBC 0 X 10*3/uL (0.00-0.01); Neutrophils # (A) 3.64 X 10*3/uL (1.80-7.70); Neutrophils % (A) 58.8 %; Platelet Count 156 X 10*3/uL (140-440); RBC 2.83 X 10*6/uL (4.10-5.20); RDW 13.8 % (11.5-14.5); WBC 6.19 X 10*3/uL (4.50-10.00)
[2024-07-10 10:19] LABS: BUN/Creat Ratio 21.46 Ratio (12.00-20.00); Blood Urea Nitrogen 27.9 mg/dL (9.0-27.0); Calcium 8.4 mg/dL (8.7-10.3); Carbon Dioxide 29.1 mmol/L (21.6-31.8); Chloride 103 mmol/L (96-109); Glucose 124 mg/dL (70-110); Potassium 3.8 mmol/L (3.5-5.5); Sodium 141 mmol/L (135-145)
[2024-07-10] MEDS: PROPRANOLOL LA 60 MG CAP.SA.24H PO SCH (10:56)
[2024-07-10] MEDS: ACETAMINOPHEN TAB 325 MG TAB PO PRN (11:00)
--- NOTE | 2024-07-10 11:37 | P.PN ---
Subjective Progress Note Date: 07/10/24 Reason for Consult (text): Elevated troponin History of present illness: This is an 84-year-old female, does not follow in our office with a past medical history of persistent atrial fibrillation, hypertension, hyperlipidemia. We have been asked to evaluate the patient for elevated troponins. Patient was initially seen at [facility] after a fall when her walker was tangled up with her 's walker. She had a fall onto her right side with right knee pain. No head injury. Patient did not lose consciousness. She underwent CAT scan of the head and neck as well as x-rays of the chest and knee that were all negative. She was found to have TOMMY and lactic acidosis and UTI. Her troponin was elevated and thus patient was transferred to [facility] for further evaluation. Patient is unable to provide any history. Blood pressure 150/55, heart rate in the 50s, pulse ox 95% on 2 L nasal cannula, afebrile. Patient is status post 1 L of IV fluids. She is seen today in the emergency center waiting for a bed on the observation unit. -EKG: Atrial fibrillation at 60 bpm. -Chest x-ray: Negative reported at [facility]. -Laboratory studies: WBC 10, hemoglobin 11.2, sodium 135, potassium 3.5, CO2 35, BUN 50 creatinine 1.53. Lactic acid 2.8 followed by 2.0. Troponin 0.031, 0.042 and 0.043. Liver function test are within normal limits. -Home cardiac medications: Aspirin 81 mg daily, Lasix 40 mg daily, hydrochlorothiazide 25 mg daily, losartan 100 mg daily, potassium chloride 20 mill equivalents daily, pravastatin 40 mg at bedtime, propranolol 120 mg daily, warfarin 8 mg daily. 07/09 Patient seen and examined on the observation unit. Blood pressure 147/58, heart rate in the 50s and 60s, pulse ox 99% on 2 L nasal cannula. Patient has been afebrile. Triglycerides 80, cholesterol 156, LDL 46, proBNP 4601. A1c 5.6 INR 1.4. Patient's mental status is much improved from yesterday. She states she feels well this morning except that her leg is bothering her from the fall. Patient denies chest pain no chest pressure, no shortness of breath. Noted that her previous creatinine was 1.6 at [place] we will plan to resume Lasix tomorrow. 07/10 Patient seen and examined. Yesterday we resumed her back on losartan at her home dose and continue to hold aspirin and hydrochlorothiazide. We resumed back her Lasix starting today. Echocardiogram reveals EF of 55 to 60%, RVSP 42, mild mitral regurgitation, mild aortic regurgitation, no pericardial effusion. Results of the echocardiogram were reviewed with the patient. She states she is feeling well today, no chest pain no chest pressure no shortness of breath. She is complaining of knee pain that is preventing her from walking. Physical examination: Gen: This is 84-year-old female in no acute respiratory distress. VS: reviewed HEENT: Head is atraumatic, normocephalic. Pupils equal, round. Sclerae is anicteric. NECK: Supple. No JVD. LUNGS: Clear to auscultation. No wheezes or rhonchi. No intercostal retractions. HEART: Irregular rate and rhythm. Mild systolic murmur at the right sternal border. ABDOMEN: Soft No tenderness. EXTREMITIES: 2+ bilateral lower extremity edema appears to be chronic. No calf tenderness. NEUROLOGICAL: Patient is awake, alert and oriented. Assessment: Mechanical fall with no LOC Flat troponin elevation secondary to acute kidney injury Acute kidney injury Lactic acidosis Persistent atrial fibrillation with controlled rate Failure to thrive Hypertension Hyperlipidemia Chronic lower extremity edema Possible metabolic encephalopathy, resolved Plan: Continue patient's home cardiac medications with the following changes Hold aspirin and hydrochlorothiazide Resume losartan back to 100 mg daily- her home dose Resume Lasix starting Thursday Continue warfarin, pharmacy to dose Resume propranolol at lower dose of 60 mg daily, home dose is 120 mg Discontinue IV fluids No further cardiac workup is planned. Patient is waiting for rehab placement. Cardiology will sign off, please call for any new concerns. 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 Nurse practitioner note has been reviewed, I agree with documented findings and plan of care. Patient was seen and examined. Objective - Vital Signs Vital signs: Vital Signs Temp 97.5 F L 07/10/24 07:40 Pulse 58 L 07/10/24 07:40 Resp 15 07/10/24 07:40 BP 166/68 07/10/24 07:40 Pulse Ox 96 07/10/24 07:40 FiO2 Intake & Output 07/09/24 07/10/24 07/10/24 18:59 06:59 18:59 Intake Total 236 Balance 236 Weight 65.2 kg Intake: Oral 236 Other: Voiding Method Toilet # Voids 1 2 - Labs CBC & Chem 7: 07/10/24 03:48 07/10/24 03:48 Labs: Abnormal Lab Results - Last 24 Hours (Table) 07/09/24 07/09/24 07/09/24 Range/Units 03:46 03:46 17:13 RBC 2.94 L (4.10-5.20) X 10*6/uL Hgb 9.2 L (12.0-15.0) g/dL Hct 28.6 L (37.2-46.3) % MCV 97.3 H (80.0-97.0) FL Eosinophils # 0.47 H (0.04-0.35) X 10*3/uL PT (10.0-12.5) sec INR (<1.2) Potassium 3.2 L (3.5-5.5) mmol/L BUN 37.6 H (9.0-27.0) mg/dL Est GFR (CKD-EPI) 37 L (>=60) BUN/Creatinine Ratio 26.86 H (12.00-20.00) Ratio Glucose 121 H (70-110) mg/dL POC Glucose (mg/dL) 133 H (70-110) mg/dL Calcium 8.3 L (8.7-10.3) mg/dL 07/09/24 07/10/24 07/10/24 Range/Units 20:22 03:48 05:40 RBC (4.10-5.20) X 10*6/uL Hgb (12.0-15.0) g/dL Hct (37.2-46.3) % MCV (80.0-97.0) FL Eosinophils # (0.04-0.35) X 10*3/uL PT 13.5 H (10.0-12.5) sec INR 1.3 H (<1.2) Potassium (3.5-5.5) mmol/L BUN (9.0-27.0) mg/dL Est GFR (CKD-EPI) (>=60) BUN/Creatinine Ratio (12.00-20.00) Ratio Glucose (70-110) mg/dL POC Glucose (mg/dL) 142 H 145 H (70-110) mg/dL Calcium (8.7-10.3) mg/dL
[2024-07-10 12:21] LABS: Glucose,Whole Blood 146 mg/dL (70-110)
--- NOTE | 2024-07-10 15:00 | P.PN ---
Subjective Progress Note Date: 07/10/24 Interval History: 84-year-old female with past medical history significant for atrial fibrillation on Coumadin, hypertension, hyperlipidemia who was transferred from [facility] where patient was taken as a trauma. Patient lives at assisted living facility. Patient was ambulating and assisting her when walker got tangled and patient fell to the ground, patient landed on right side. Patient reported pain in her right knee, denied any head injury or loss of consciousness, denied any back pain,. CT head and CTA neck was negative for acute process. X-ray chest and knee was also negative for any acute process fractures or dislocation. Patient was noted to have acute kidney injury with increased lactate acid and UTI and elevated troponin at the facility and patient was transferred to [facility] for further evaluation and management. Patient is afebrile, heart rate 56, respiratory rate 15, blood pressure 144/58, saturating 99% on 2 L. WBC 6.0, hemoglobin 9.2, platelet 162. INR 1.4 Sodium 142 potassium 3.2 BUN 37 creatinine 1.4 troponin 0.041, 0.043 proBNP 4600. 07/10/2024 Patient was seen and examined today. Afebrile, heart rate 61, respiratory rate 18, blood pressure 166/68, saturating 96% on room air. WBCs 6.1, hemoglobin 8.9, platelet 156. BUN 27.9, creatinine 1.3 trending down. Cardiology following, resumed on Lasix and losartan, holding aspirin hydrochlorothiazide. Assessment and plan: Mechanical fall: Acute Metabolic encephalopathy: Resolved Lactic acidosis Failure to thrive Imaging studies including CT head, neck, x-ray chest, x-ray knee negative for acute process. Fall precautions PT/OT consult Elevated troponin: Demand ischemia Paroxysmal atrial fibrillation: On Coumadin Hypertension Hyperlipidemia Chronic lower extremity edema Troponin trend remained flat, EKG unremarkable. Cardiology consulted, following. hold aspirin, hydrochlorothiazide, resume losartan, Lasix. Echocardiogram--EF 55 to 60%, RVSP 42, mild MR, mild AR. Acute kidney injury: Unknown baseline, likely CKD Avoid nephrotoxin Monitor renal function DVT prophylaxis Anticoagulated with Coumadin Monitor vital signs and labs Labs and medication were reviewed. Continue same treatment. Further recommendations as per clinical course of the patient PHYSICAL EXAMINATION: GENERAL: The patient is A&O x3, NAD HEENT: EOMI, Sclerae anicteric, Moist Mucous membranes Neck: Supple, Non tender, No JVD PULMONARY: Equal breath souds B/L, No wheezing, No crackles. CARDIOVASCULAR: S1, S2 present. No murmurs, rubs, or gallops. ABDOMEN: Soft, nontender, nondistended, normoactive bowel sounds. No guarding or rebound tenderness. MUSCULOSKELETAL: +edema, No cyanosis. No clubbing. Normal ROM. Intact peripheral pulses. NEUROLOGICAL: CN 2-12 grossly intact. No FND REVIEW OF SYSTEMS: CONSTITUTIONAL: No fever or chills. CARDIOVASCULAR: No chest pain, palpitations or syncope. PULMONARY: No shortness of breath, no cough, sore throat. GASTROINTESTINAL: No nausea, vomiting, diarrhea, abdominal pain. : No Dysuria, urgency, frequency. Extremities: No edema. NEUROLOGICAL: No headaches, no weakness, or numbness Dictation was produced using [employer] dictation software. please excuse any grammatical, word or spelling errors. Objective - Vital Signs Vital signs: Vital Signs Temp 97.5 F L 07/10/24 07:40 Pulse 58 L 07/10/24 07:40 Resp 15 07/10/24 07:40 BP 166/68 07/10/24 07:40 Pulse Ox 96 07/10/24 07:40 FiO2 Intake & Output 07/09/24 07/10/24 07/10/24 18:59 06:59 18:59 Intake Total 236 Balance 236 Weight 65.2 kg Intake: Oral 236 Other: Voiding Method Toilet # Voids 1 2 - Labs CBC & Chem 7: 07/10/24 03:48 07/10/24 03:48 Labs: Abnormal Lab Results - Last 24 Hours (Table) 07/09/24 07/09/24 07/10/24 Range/Units 17:13 20:22 03:48 RBC 2.83 L (4.10-5.20) X 10*6/uL Hgb 8.9 L (12.0-15.0) g/dL Hct 27.6 L (37.2-46.3) % MCV 97.5 H (80.0-97.0) FL MPV 12.6 H (9.5-12.2) FL Eosinophils # 0.59 H (0.04-0.35) X 10*3/uL PT (10.0-12.5) sec INR (<1.2) BUN (9.0-27.0) mg/dL Est GFR (CKD-EPI) (>=60) BUN/Creatinine Ratio (12.00-20.00) Ratio Glucose (70-110) mg/dL POC Glucose (mg/dL) 133 H 142 H (70-110) mg/dL Calcium (8.7-10.3) mg/dL 07/10/24 07/10/24 07/10/24 Range/Units 03:48 03:48 05:40 RBC (4.10-5.20) X 10*6/uL Hgb (12.0-15.0) g/dL Hct (37.2-46.3) % MCV (80.0-97.0) FL MPV (9.5-12.2) FL Eosinophils # (0.04-0.35) X 10*3/uL PT 13.5 H (10.0-12.5) sec INR 1.3 H (<1.2) BUN 27.9 H (9.0-27.0) mg/dL Est GFR (CKD-EPI) 40 L (>=60) BUN/Creatinine Ratio 21.46 H (12.00-20.00) Ratio Glucose 124 H (70-110) mg/dL POC Glucose (mg/dL) 145 H (70-110) mg/dL Calcium 8.4 L (8.7-10.3) mg/dL 07/10/24 Range/Units 12:19 RBC (4.10-5.20) X 10*6/uL Hgb (12.0-15.0) g/dL Hct (37.2-46.3) % MCV (80.0-97.0) FL MPV (9.5-12.2) FL Eosinophils # (0.04-0.35) X 10*3/uL PT (10.0-12.5) sec INR (<1.2) BUN (9.0-27.0) mg/dL Est GFR (CKD-EPI) (>=60) BUN/Creatinine Ratio (12.00-20.00) Ratio Glucose (70-110) mg/dL POC Glucose (mg/dL) 146 H (70-110) mg/dL Calcium (8.7-10.3) mg/dL
[2024-07-10 17:33] LABS: Glucose,Whole Blood 133 mg/dL (70-110)
[2024-07-10 19:49] LABS: Glucose,Whole Blood 167 mg/dL (70-110)
[2024-07-11 05:25] LABS: INR 1.5 (<1.2)
[2024-07-11 05:38] LABS: Glucose,Whole Blood 126 mg/dL (70-110)
[2024-07-11 10:33] LABS: Basophils # (A) 0.05 X 10*3/uL (0.00-0.10); Basophils % (A) 0.8 %; Eosinophils % (A) 10.2 %; HGB 9.6 g/dL (12.0-15.0); Lymphocytes # (A) 1.25 X 10*3/uL (0.90-5.00); Lymphocytes % (A) 21.2 %; MCH 31.2 pg (27.0-32.0); MCV 97.4 FL (80.0-97.0); Mean Platelet Volume 11.7 FL (9.5-12.2); Monocytes # (A) 0.55 X 10*3/uL (0.20-1.00); Monocytes % (A) 9.3 %; NRBC Per 100 WBC 0 X 10*3/uL (0.00-0.01); Neutrophils # (A) 3.44 X 10*3/uL (1.80-7.70); Neutrophils % (A) 58.2 %; Platelet Count 160 X 10*3/uL (140-440); RBC 3.08 X 10*6/uL (4.10-5.20); RDW 13.7 % (11.5-14.5); WBC 5.91 X 10*3/uL (4.50-10.00)
[2024-07-11 12:11] LABS: Glucose,Whole Blood 145 mg/dL (70-110)
--- NOTE | 2024-07-11 14:08 | P.DS ---
Providers Date of admission: 07/08/24 03:49 Attending physician: Hilaria Lopez Consults: 07/08/24 03:48 Consult Physician Urgent Consulting Provider: [facility] Consult Reason/Comments: elevated trop Do you want consulting provider notified?: Yes 07/11/24 13:54 Consult Physician Routine Consulting Provider: Rojelio Rosenthal Consult Reason/Comments: right knee pain, unable to bear weight, needs clearance for return to [facility] Do you want consulting provider notified?: Yes Primary care physician: FARNAZ Gallegos Hospital Course: 84-year-old female with past medical history significant for atrial fibrillation on Coumadin, hypertension, hyperlipidemia who was transferred from [facility] where patient was taken as a trauma. Patient lives at assisted living facility. Patient was ambulating and assisting her when walker got tangled and patient fell to the ground, patient landed on right side. Patient reported pain in her right knee, denied any head injury or loss of consciousness, denied any back pain,. CT head and CTA neck was negative for acute process. X-ray chest and knee was also negative for any acute process fractures or dislocation. Patient was noted to have acute kidney injury with increased lactate acid and UTI and elevated troponin at the facility and patient was transferred to [facility] for further evaluation and management. Patient is afebrile, heart rate 56, respiratory rate 15, blood pressure 144/58, saturating 99% on 2 L. WBC 6.0, hemoglobin 9.2, platelet 162. INR 1.4 Sodium 142 potassium 3.2 BUN 37 creatinine 1.4 troponin 0.041, 0.043 proBNP 4600. 07/10/2024 Patient was seen and examined today. Afebrile, heart rate 61, respiratory rate 18, blood pressure 166/68, saturating 96% on room air. WBCs 6.1, hemoglobin 8.9, platelet 156. BUN 27.9, creatinine 1.3 trending down. Cardiology following, resumed on Lasix and losartan, holding aspirin hydrochlorothiazide. 07/11/2024 Patient is still having some pain upon ambulation physical therapy Occupational Therapy evaluated the patient awaiting their recommendations may need placement in subacute rehabilitation patient is a interfacility at the level of care to which can be increased will level of care 6. Patient probably can be discharged today. Assessment and plan: Mechanical fall: Acute Metabolic encephalopathy: Resolved Lactic acidosis Failure to thrive Imaging studies including CT head, neck, x-ray chest, x-ray knee negative for acute process. Fall precautions PT/OT evaluated the patient Elevated troponin: Demand ischemia Paroxysmal atrial fibrillation: On Coumadin, subtherapeutic INR increase the dose to 10 mg repeat INR in 2 days Hypertension Hyperlipidemia Chronic lower extremity edema Troponin trend remained flat, EKG unremarkable. Cardiology consulted, following. No further recommendations from their perspective hold aspirin, hydrochlorothiazide, resumed losartan, Lasix. Echocardiogram--EF 55 to 60%, RVSP 42, mild MR, mild AR. Acute kidney injury: Unknown baseline, likely CKD Avoid nephrotoxin Monitor renal function PHYSICAL EXAMINATION: GENERAL: The patient is A&O x3, NAD HEENT: EOMI, Sclerae anicteric, Moist Mucous membranes Neck: Supple, Non tender, No JVD PULMONARY: Equal breath souds B/L, No wheezing, No crackles. CARDIOVASCULAR: S1, S2 present. No murmurs, rubs, or gallops. ABDOMEN: Soft, nontender, nondistended, normoactive bowel sounds. No guarding or rebound tenderness. MUSCULOSKELETAL: +edema, No cyanosis. No clubbing. Normal ROM. Intact peripheral pulses. NEUROLOGICAL: CN 2-12 grossly intact. No FND Patient Condition at Discharge: Stable Plan - Discharge Summary Discharge Rx Participant: No New Discharge Prescriptions: Continue Sertraline [Zoloft] 50 mg PO DAILY Primidone [Mysoline] 100 mg PO HS Primidone 50 mg PO DAILY Aspirin 81 mg PO DAILY Ondansetron Odt [Zofran ODT] 4 mg PO Q4H PRN PRN Reason: Nausea And Vomiting Magnesium Hydroxide [Milk of Magnesia] 2,400 mg PO DAILY PRN PRN Reason: Constipation guaiFENesin SYRUP 100MG/5ML [Robitussin] 100 mg PO Q4H PRN PRN Reason: cough & congestion Calcium Carbonate [Tums] 1,000 mg PO Q2H PRN MDD 4 doses PRN Reason: Heartburn Sennosides/Docusate Sodium [Senna Plus 8.6-50 mg Tablet] 1 tab PO DAILY PRN PRN Reason: Constipation bisacodyL [Dulcolax] 10 mg RECTAL DAILY PRN PRN Reason: Constipation Acetaminophen Tab [Tylenol] 650 mg PO Q4H PRN PRN Reason: Pain Or Fever > 100.5 Propylene Glycol/Peg 400 [Systane Ultra 0.4-0.3% Eye Drp] 1 drop BOTH EYES TID Propranolol HCl [Propranolol HCl ER] 120 mg PO DAILY Pravastatin Sodium [Pravachol] 40 mg PO HS metFORMIN HCL [Glucophage] 1,000 mg PO BID Potassium Chloride [Klor-Con M20] 20 meq PO DAILY Losartan Potassium [Cozaar] 100 mg PO DAILY Furosemide [Lasix] 40 mg PO DAILY Ipratropium-Albuterol Nebulize [Duoneb 0.5 mg-3 mg/3 ml Soln] 3 ml INHALATION RT-Q6H PRN PRN Reason: Shortness Of Breath polyethylene glycoL 3350 [Miralax] 17 gm PO DAILY PRN PRN Reason: Constipation Changed Warfarin Sodium 10 mg PO DAILY@1700 #0 Discontinued hydroCHLOROthiazide [Hydrodiuril] 25 mg PO DAILY Discharge Medication List Acetaminophen Tab [Tylenol] 650 mg PO Q4H PRN 07/08/24 [History] Aspirin 81 mg PO DAILY 07/08/24 [History] Calcium Carbonate [Tums] 1,000 mg PO Q2H PRN MDD 4 doses 07/08/24 [History] Furosemide [Lasix] 40 mg PO DAILY 07/08/24 [History] Ipratropium-Albuterol Nebulize [Duoneb 0.5 mg-3 mg/3 ml Soln] 3 ml INHALATION RT-Q6H PRN 07/08/24 [History] Losartan Potassium [Cozaar] 100 mg PO DAILY 07/08/24 [History] Magnesium Hydroxide [Milk of Magnesia] 2,400 mg PO DAILY PRN 07/08/24 [History] Ondansetron Odt [Zofran ODT] 4 mg PO Q4H PRN 07/08/24 [History] Potassium Chloride [Klor-Con M20] 20 meq PO DAILY 07/08/24 [History] Pravastatin Sodium [Pravachol] 40 mg PO HS 07/08/24 [History] Primidone 50 mg PO DAILY 07/08/24 [History] Primidone [Mysoline] 100 mg PO HS 07/08/24 [History] Propranolol HCl [Propranolol HCl ER] 120 mg PO DAILY 07/08/24 [History] Propylene Glycol/Peg 400 [Systane Ultra 0.4-0.3% Eye Drp] 1 drop BOTH EYES TID 07/08/24 [History] Sennosides/Docusate Sodium [Senna Plus 8.6-50 mg Tablet] 1 tab PO DAILY PRN 07/08/24 [History] Sertraline [Zoloft] 50 mg PO DAILY 07/08/24 [History] bisacodyL [Dulcolax] 10 mg RECTAL DAILY PRN 07/08/24 [History] guaiFENesin SYRUP 100MG/5ML [Robitussin] 100 mg PO Q4H PRN 07/08/24 [History] metFORMIN HCL [Glucophage] 1,000 mg PO BID 07/08/24 [History] polyethylene glycoL 3350 [Miralax] 17 gm PO DAILY PRN 07/08/24 [History] Warfarin Sodium 10 mg PO DAILY@1700 #0 07/11/24 [Rx] Follow up Appointment(s)/Referral(s): None,Stated [REFERRING] - 1-2 days Ambulatory/Diagnostic Orders: Basic Metabolic Panel [LAB.AMB] Time Frame: 3 Days, Location: None Selected Prothrombin Time INR [LAB.AMB] Time Frame: 2 Days, Location: None Selected
--- NOTE | 2024-07-11 15:33 | P.CNOR ---
History of Present Illness - [facility] Consult date: 07/11/24 Consult reason: other (Right knee pain) History of present illness: The patient is a 84 y/o female with a past medical history including A. fib on Coumadin, hypertension and hyperlipidemia, who presented to the ED at [facility] 3 days ago from transfer from [facility]. She states she fell and landed on her right knee. Once she started getting out of bed lately, she noticed her knee was very painful with standing. She states she is unable to bear weight on the leg due to severe pain. The patient lives in an assisted living facility and she will likely be discharged to skilled rehab after this hospitalization. Case management is working on discharge planning according to the patient's family. X-rays in [place] were negative according to the patient's family. The knee has minimal pain at rest. Review of Systems Constitutional: Denies chills, Denies fatigue, Denies fever Cardiovascular: Denies chest pain, Denies shortness of breath Musculoskeletal: right: knee pain, knee stiffness, knee swelling Past Medical History Past Medical History: Atrial Fibrillation, Hyperlipidemia, Hypertension History of Any Multi-Drug Resistant Organisms: None Reported Past Surgical History: No Surgical Hx Reported Past Anesthesia/Blood Transfusion Reactions: Unable to Obtain Past Alcohol Use History: None Reported Past Drug Use History: None Reported Medications and Allergies Home Medications Medication Instructions Recorded Confirmed Type Acetaminophen Tab [Tylenol] 650 mg PO Q4H PRN 07/08/24 07/08/24 History Aspirin 81 mg PO DAILY 07/08/24 07/08/24 History Calcium Carbonate [Tums] 1,000 mg PO Q2H PRN MDD 4 doses 07/08/24 07/08/24 History Furosemide [Lasix] 40 mg PO DAILY 07/08/24 07/08/24 History Ipratropium-Albuterol Nebulize 3 ml INHALATION RT-Q6H PRN 07/08/24 07/08/24 History [Duoneb 0.5 mg-3 mg/3 ml Soln] Losartan Potassium [Cozaar] 100 mg PO DAILY 07/08/24 07/08/24 History Magnesium Hydroxide [Milk of 2,400 mg PO DAILY PRN 07/08/24 07/08/24 History Magnesia] Ondansetron Odt [Zofran ODT] 4 mg PO Q4H PRN 07/08/24 07/08/24 History Potassium Chloride [Klor-Con M20] 20 meq PO DAILY 07/08/24 07/08/24 History Pravastatin Sodium [Pravachol] 40 mg PO HS 07/08/24 07/08/24 History Primidone 50 mg PO DAILY 07/08/24 07/08/24 History Primidone [Mysoline] 100 mg PO HS 07/08/24 07/08/24 History Propranolol HCl [Propranolol HCl 120 mg PO DAILY 07/08/24 07/08/24 History ER] Propylene Glycol/Peg 400 [Systane 1 drop BOTH EYES TID 07/08/24 07/08/24 History Ultra 0.4-0.3% Eye Drp] Sennosides/Docusate Sodium [Senna 1 tab PO DAILY PRN 07/08/24 07/08/24 History Plus 8.6-50 mg Tablet] Sertraline [Zoloft] 50 mg PO DAILY 07/08/24 07/08/24 History bisacodyL [Dulcolax] 10 mg RECTAL DAILY PRN 07/08/24 07/08/24 History guaiFENesin SYRUP 100MG/5ML 100 mg PO Q4H PRN 07/08/24 07/08/24 History [Robitussin] metFORMIN HCL [Glucophage] 1,000 mg PO BID 07/08/24 07/08/24 History polyethylene glycoL 3350 [Miralax] 17 gm PO DAILY PRN 07/08/24 07/08/24 History Warfarin Sodium 10 mg PO DAILY@1700 #0 07/11/24 07/08/24 Rx Allergies Allergy/AdvReac Type Severity Reaction Status Date / Time peanut Allergy Unknown Verified 07/08/24 11:17 atorvastatin [From Lipitor] AdvReac Mild Muscle Verified 07/08/24 11:17 Aches Physical Examination The patient is an 84 y/o female in no acute distress. She is alert and oriented x3. Kyler wrap removed from right knee. Exam of the right knee reveals evolving bruising to the anterior with fluid-filled blister present. No signs of infection noted. There is diffuse pain to the bruised area but no point tender ness to the distal femur, patella, or proximal tibia. No instability. Passive knee motion is 0 degree(s) of extension, flexion to 90 degree(s) . ACL, PCL, MCL, and LCL are intact. Mild effusion and soft tissue swelling present. Calf is soft and nontender. Moderate lower leg edema. Neurological and circulatory status is intact. Results X-rays of the right knee reveal no acute fractures or dislocation noted. Prepatellar swelling present. - Labs Labs: Abnormal Lab Results - Last 24 Hours (Table) 07/10/24 07/10/24 07/11/24 Range/Units 17:32 19:45 04:22 RBC (4.10-5.20) X 10*6/uL Hgb (12.0-15.0) g/dL Hct (37.2-46.3) % MCV (80.0-97.0) FL Eosinophils # (0.04-0.35) X 10*3/uL PT 16.0 H (10.0-12.5) sec INR 1.5 H (<1.2) POC Glucose (mg/dL) 133 H 167 H (70-110) mg/dL 07/11/24 07/11/24 07/11/24 Range/Units 05:35 08:16 12:05 RBC 3.08 L (4.10-5.20) X 10*6/uL Hgb 9.6 L (12.0-15.0) g/dL Hct 30.0 L (37.2-46.3) % MCV 97.4 H (80.0-97.0) FL Eosinophils # 0.60 H (0.04-0.35) X 10*3/uL PT (10.0-12.5) sec INR (<1.2) POC Glucose (mg/dL) 126 H 145 H (70-110) mg/dL H & H 07/08/24 07/09/24 07/10/24 Range/Units 04:24 03:46 03:48 Hgb 11.2 L 9.2 L 8.9 L (12.0-15.0) g/dL Hct 33.1 L 28.6 L 27.6 L (37.2-46.3) % 07/11/24 Range/Units 08:16 Hgb 9.6 L (12.0-15.0) g/dL Hct 30.0 L (37.2-46.3) % Coagulation 07/08/24 07/09/24 07/10/24 Range/Units 13:10 03:46 03:48 INR 1.6 H 1.4 H 1.3 H (<1.2) 07/11/24 Range/Units 04:22 INR 1.5 H (<1.2) Result Diagrams: 07/11/24 08:16 07/10/24 03:48 Assessment and Plan (1) Fall Current Visit: Yes Status: Acute Code(s): W19.XXXA - UNSPECIFIED FALL, INITIAL ENCOUNTER SNOMED Code(s): 7964085 (2) Right knee pain Current Visit: Yes Status: Acute Code(s): M25.561 - PAIN IN RIGHT KNEE SNOMED Code(s): 1672113691 (3) Contusion of right knee Current Visit: Yes Status: Acute Code(s): S80.01XA - CONTUSION OF RIGHT KNEE, INITIAL ENCOUNTER SNOMED Code(s): 57801452677475121 Plan: The clinical and x-ray findings were discussed with the patient and her family at the beside this afternoon. The case was discussed with Dr. Rosenthal. No acute fractures are seen at this time. This is likely a knee contusion that will take some time to heal, especially with her use of Coumadin. She may weightbear as tolerated with a walker. I encouraged gentle ROM of the knee as tolerated. She states the knee feels better without the kyler wrap on. We recommend continued PT and skilled rehab upon discharge. We will continue to follow the patient and make further recommendations if needed.
--- NOTE | 2024-07-11 15:35 | XR ---
EXAMINATION TYPE: XR knee complete RT DATE OF EXAM: 07/11/2024 3:10 PM COMPARISON: None CLINICAL INDICATION: Female, 84 years old with history of right knee pain; PHH, pain TECHNIQUE: XR knee complete RT 3 views submitted. FINDINGS: Prepatellar soft tissue edema noted. Calcified lesion in the prepatellar space measuring 2 mm. No evidence of any acute osseous pathology, soft tissue swelling, or joint effusion is noted. T ricompartmental osteophyte formation involving the femoral condyles, tibial plateau and patella. Mild joint space narrowing. IMPRESSION: 1. No acute osseous pathology. 2. There is prepatellar soft tissue edema . Correlate with history of trauma to the anterior knee. Co nsider further evaluation with MRI. Mild tricompartmental osteoarthritic changes. [facility], , 07/11/2024 3:33 PM
[2024-07-11 17:16] LABS: Glucose,Whole Blood 126 mg/dL (70-110)
[2024-07-11] MEDS: WARFARIN 3 MG TAB PO ONE (17:19)
[2024-07-12 06:14] LABS: INR 1.8 (<1.2); Prothrombin Time 18.5 sec (10.0-12.5)
[2024-07-12 06:26] LABS: Glucose,Whole Blood 123 mg/dL (70-110)
--- NOTE | 2024-07-12 11:06 | P.PN ---
Progress Note - Text Agree with consult note by Brooklynn Greer NP. I saw and evaluated the patient this morning. She was able to ambulate with PT, but is still painful. I will order a CT scan of the right knee to rule out occult fracture given the patient's age, history of fall and pain.
--- NOTE | 2024-07-12 12:25 | XR ---
EXAMINATION TYPE: XR pelvis AP view DATE OF EXAM: 07/12/2024 11:53 AM COMPARISON: None. CLINICAL INDICATION: Female, 84 years old with history of pain, rule out fracture; pain H TECHNIQUE: XR pelvis AP view, examined in a single projection. FINDINGS: Acute fractures of the right femoral neck with valgus impaction. The remainder of the pelvi s appears intact. Mild degeneration changes of the left hip and lower spine. IMPRESSION: Right basal cervical femoral neck fracture with valgus impaction. Remainder the pelvis appears intact . Left femur appears intact. [facility], , 07/12/2024 12:22 PM
--- NOTE | 2024-07-12 12:30 | CT ---
EXAMINATION TYPE: CT knee RT wo con DATE OF EXAM: 07/12/2024 12:06 PM COMPARISON: . Extremity radiograph same day. CLINICAL INDICATION: Female, 84 years old with history of fall, rule out fracture; PHH, Fall, r/o fx TECHNIQUE: Axial images were obtained of the CT knee RT wo con, Additional coronal and sagittal refor matted images and soft tissue and bone window were obtained for review. 3-D reconstruction was create d on a separate workstation. Contrast used: mL of , (None if empty) Oral contrast used: (None if empty) CT DLP: 340 mGycm, Automated exposure control for dose reduction was used. FINDINGS: Diffuse osseous demineralization which limits evaluation for subtle fractures. There is no evidence of fracture, subluxation, or dislocation. Scattered soft tissue edema noted on the knee. Pre patellar possible hematoma present measuring 41 x 16 x 62 mm.. No focal muscular atrophy or edema is identified. No radiopaque foreign body identified. IMPRESSION: 1. Diffuse osseous demineralization which limits evaluation for subtle fractures. No displaced fract ure visualized. If there remains concern consider MRI. 2. Prepatellar subcutaneous suspected hematoma measuring up to 63 x 41 x 16 mm. [facility], , 07/12/2024 12:27 PM
[2024-07-12 12:34] LABS: Glucose,Whole Blood 133 mg/dL (70-110)
--- NOTE | 2024-07-12 14:36 | P.PN ---
Progress Note - Text Due to the patient's exam this morning an AP pelvis was obtained. This x-ray shows an impacted femoral neck fracture. A more focused exam of the right hip was performed this afternoon. The patient has some discomfort with passive range of motion of the hip but is able to perform a straight leg raise and her exam is somewhat equivocal. She is also a somewhat poor historian and states she had may have fallen previously. To determine the acuity of her hip fracture I am ordering a stat MRI. We will tentatively plan for a hip hemiarthroplasty for tomorrow if the fracture is acute. If the fracture appears chronic on MRI the fracture is likely stable and can be treated none surgically. We will tentatively make her n.p.o. after midnight and plan for surgery tomorrow afternoon if the fracture is acute. Please hold anticoagulation in the event that she needs surgery.
[2024-07-12 15:12] LABS: Glucose,Whole Blood 197 mg/dL (70-110)
--- NOTE | 2024-07-12 15:26 | P.PN ---
Subjective Progress Note Date: 07/12/24 84-year-old female with past medical history significant for atrial fibrillation on Coumadin, hypertension, hyperlipidemia who was transferred from [facility] where patient was taken as a trauma. Patient lives at assisted living facility. Patient was ambulating and assisting her when walker got tangled and patient fell to the ground, patient landed on right side. Patient reported pain in her right knee, denied any head injury or loss of consciousness, denied any back pain,. CT head and CTA neck was negative for acute process. X-ray chest and knee was also negative for any acute process fractures or dislocation. Patient was noted to have acute kidney injury with increased lactate acid and UTI and elevated troponin at the facility and patient was transferred to [facility] for further evaluation and management. Patient is afebrile, heart rate 56, respiratory rate 15, blood pressure 144/58, saturating 99% on 2 L. WBC 6.0, hemoglobin 9.2, platelet 162. INR 1.4 Sodium 142 potassium 3.2 BUN 37 creatinine 1.4 troponin 0.041, 0.043 proBNP 4600. 07/12/2024 Patient evaluated today in follow up on the medical floor. Patient does require 3 night of inpatient hospital stay in order to DC to rehab. She is having some right sided knee pain from the knee contusion. Review of Systems Constitutional: Denied any fatigue denied any fever. Cardio vascular: denied any chest pain, palpitations Gastrointestinal: denied any nausea, vomiting, diarrhea Pulmonary: Denied any shortness of breath cough Neurologic denied any new focal deficits All inpatient medications were reviewed and appropriate changes in these medications as dictated in the interval history and assessment and plan. PHYSICAL EXAMINATION: GENERAL: The patient is A&O x3, NAD HEENT: EOMI, Sclerae anicteric, Moist Mucous membranes Neck: Supple, Non tender, No JVD PULMONARY: Equal breath souds B/L, No wheezing, No crackles. CARDIOVASCULAR: S1, S2 present. No murmurs, rubs, or gallops. ABDOMEN: Soft, nontender, nondistended, normoactive bowel sounds. No guarding or rebound tenderness. MUSCULOSKELETAL: +edema, No cyanosis. No clubbing. Normal ROM. Intact peripheral pulses. NEUROLOGICAL: CN 2-12 grossly intact. No FND Assessment and Plan Mechanical fall: with right knee contusion -Right side impacted femoral neck fracture Acute Metabolic encephalopathy: Resolved Lactic acidosis Elevated troponin: Demand ischemia Paroxysmal atrial fibrillation: On Coumadin, subtherapeutic Orthopedics recommending to hold coumadin because of the femoral neck fracture on the AP pelvis xray completed today. Hypertension Hyperlipidemia Chronic lower extremity edema Troponin trend remained flat, EKG unremarkable. Cardiology consulted, following. No further recommendations from their perspective hold aspirin, hydrochlorothiazide, resumed losartan, Lasix. Echocardiogram--EF 55 to 60%, RVSP 42, mild MR, mild AR. Acute kidney injury: Unknown baseline, likely CKD Avoid nephrotoxin Monitor renal function GI prophylaxis DVT prophylaxis warfarin will be held Full Code Patient scheduled to undergo right direct anterior hip hemiarthroplasty tomorrow with Dr. Rosenthal. Patient will require CEASAR on discharge and requires a 3 night inpatient hospital stay and for this reason she has been flipped in patient. The impression and plan of care has been dictated by Kadie Henderson, Nurse Practitioner as directed. Dr. Aram MD I have performed a history and physical examination and medical decision making of this patient, discussed the same with the dictator, and agree with the dictators assessment and plan as written, documented as a scribe. Based on total visit time, I have performed more than 50% of this visit. Objective - Vital Signs Vital signs: Vital Signs Temp 97.8 F 07/12/24 14:20 Pulse 60 07/12/24 14:20 Resp 16 07/12/24 14:34 BP 164/64 07/12/24 14:20 Pulse Ox 97 07/12/24 14:20 FiO2 Intake & Output 07/11/24 07/12/24 07/12/24 18:59 06:59 18:59 Intake Total 354 236 Balance 354 236 Weight 66 kg Intake: Oral 354 236 Other: # Voids 2 1 1 - Labs CBC & Chem 7: 07/11/24 08:16 07/10/24 03:48 Labs: Abnormal Lab Results - Last 24 Hours (Table) 07/11/24 07/11/24 07/12/24 Range/Units 17:15 19:31 05:21 PT 18.5 H (10.0-12.5) sec INR 1.8 H (<1.2) POC Glucose (mg/dL) 126 H 197 H (70-110) mg/dL 07/12/24 07/12/24 Range/Units 06:25 12:33 PT (10.0-12.5) sec INR (<1.2) POC Glucose (mg/dL) 123 H 133 H (70-110) mg/dL Assessment and Plan Time with Patient: Less than 30
--- NOTE | 2024-07-12 16:12 | MR ---
EXAMINATION TYPE: MR hip RT wo con DATE OF EXAM: 07/12/2024 3:57 PM CLINICAL INDICATION: Female, 84 years old with history of determine acuity of hip fracture; SARTHAKHPaul acuity of hip fracture COMPARISON plain film same day. TECHNIQUE: Multiplanar multi-sequential magnetic resonance imaging of the hip without contrast. IV Contrast: mL FINDINGS: Joint spaces and alignment: Normal Joint/bursal fluid: Normal Articular cartilage: Normal Acetabular labrum: Intact no displaced labral tear definitively visualized given noncontrast techniqu e. Muscles/Tendons: Intact The tendons of the gluteal, hamstring, iliopsoas, and adductors are normal in within normal limits without evidence for edema and are intact. Abductor tendon insertions: Intact Intrapelvic structures: Normal Neurovascular structures: Normal Osseous structures: Bony edema within the proximal right femur with curvilinear low T1 and low T2 sig nal fracture line present as seen on radiograph. No additional bony edema visualized. There is subcut aneous edema around the right hip. The femoral heads demonstrates normal morphology and signal charac teristics. There is no evidence of additional fracture or acute process within the remainder of the pelvis. The sacroiliac joints and pubic symphysis are noted to be unremarkable. Soft tissues: Normal Other: The urinary bladder are unremarkable. Uterus is not definitively visualized and may be surgica lly absent. Motion artifact limits evaluation of the pelvis structures. No lymphadenopathy is visuali zed. IMPRESSION: 1. Right subcapital femoral neck fracture with bony edema present. Findings suggest at least acute p rocess subcutaneous less likely chronic. Correlate with history of fall. There is surrounding edema t hroughout the right hip region. 2. No additional arches of the pelvis visualized. [facility], , 07/12/2024 4:10 PM
[2024-07-12 17:21] LABS: Glucose,Whole Blood 123 mg/dL (70-110)
[2024-07-12] MEDS ORDERED: WARFARIN 3 MG TAB PO ONE (18:00)
[2024-07-12 21:35] LABS: Glucose,Whole Blood 170 mg/dL (70-110)
[2024-07-13 06:13] LABS: Glucose,Whole Blood 141 mg/dL (70-110)
[2024-07-13 06:32] LABS: Basophils # (A) 0.06 10*3/uL (0.00-0.10); Basophils % (A) 0.9 %; Eosinophils # (A) 0.76 10*3/uL (0.04-0.35); Eosinophils % (A) 11.4 %; HCT 30.2 % (37.2-46.3); HGB 9.8 g/dL (12.0-15.0); Lymphocytes # (A) 1.36 10*3/uL (0.90-5.00); Lymphocytes % (A) 20.3 %; MCH 31.8 pg (27.0-32.0); MCHC 32.5 g/dL (32.0-37.0); MCV 98.1 fL (80.0-97.0); Mean Platelet Volume 11.3 fL (9.5-12.2); Monocytes # (A) 0.68 10*3/uL (0.20-1.00); Monocytes % (A) 10.2 %; Neutrophils # (A) 3.81 10*3/uL (1.80-7.70); Neutrophils % (A) 56.9 %; Platelet Count 199 10*3/uL (140-440); RBC 3.08 10*6/uL (4.10-5.20); RDW 13.6 % (11.5-14.5); WBC 6.69 10*3/uL (4.50-10.00)
[2024-07-13 06:44] LABS: INR 1.5 (<1.2); Prothrombin Time 15.7 sec (10.0-12.5)
[2024-07-13 07:53] LABS: African American GFR (CKD) 43 (>60 ml/min/1.73 sqM); Anion Gap 5 mmol/L; Blood Urea Nitrogen 26 mg/dL (7-17); Calcium 8.9 mg/dL (8.4-10.2); Carbon Dioxide 32 mmol/L (22-30); Chloride 101 mmol/L (98-107); Glucose 123 mg/dL (74-99); Non-African American GFR(CKD) 37 (>60 ml/min/1.73 sqM); Potassium 3.7 mmol/L (3.5-5.1); Sodium 138 mmol/L (137-145)
--- NOTE | 2024-07-13 08:04 | P.PN ---
Progress Note - Text The patient's MRI shows an acute subcapital femoral neck fracture. I spoke with the patient's son, Anthony Villalobos her DPOA, this morning. Due to her pain, recent fall, difficulty ambulating and fracture characteristics on both x-ray and MRI I recommended a cemented hip hemiarthroplasty. We will plan on surgery this afternoon if she is cleared by IM.
--- NOTE | 2024-07-13 12:26 | P.PN ---
Subjective Progress Note Date: 07/13/24 84-year-old female with past medical history significant for atrial fibrillation on Coumadin, hypertension, hyperlipidemia who was transferred from [facility] where patient was taken as a trauma. Patient lives at assisted living facility. Patient was ambulating and assisting her when walker got tangled and patient fell to the ground, patient landed on right side. Patient reported pain in her right knee, denied any head injury or loss of consciousness, denied any back pain,. CT head and CTA neck was negative for acute process. X-ray chest and knee was also negative for any acute process fractures or dislocation. Patient was noted to have acute kidney injury with increased lactate acid and UTI and elevated troponin at the facility and patient was transferred to [facility] for further evaluation and management. Patient is afebrile, heart rate 56, respiratory rate 15, blood pressure 144/58, saturating 99% on 2 L. WBC 6.0, hemoglobin 9.2, platelet 162. INR 1.4 Sodium 142 potassium 3.2 BUN 37 creatinine 1.4 troponin 0.041, 0.043 proBNP 4600. 07/12/2024 Patient evaluated today in follow up on the medical floor. Patient does require 3 night of inpatient hospital stay in order to DC to rehab. She is having some right sided knee pain from the knee contusion. 07/13/2024 Patient is evaluated today in follow up on the medical floor. Patient will be going for a right direct anterior hip arthroplasty with Dr. Rosenthal today. Patient was evaluated by cardiology on admission for the elevated troponin and it was atributed to the TOMMY and demand ischemia with no acute coronory syndrome. Had an echocardiogram this admission with EF EF 55 to 60%, RVSP 42, mild MR, mild AR. Renal function remains stable with BUN 26, creatinine 1.32. Sodium 138, potassium 3.7. Patient will be medically cleared to undergo surgery today with moderate risk due to the history of atrial fibrillation and advanced age. Risk vs. Benefit explained and patients quality of life will improve with surgical intervention of the right impacted femoral neck fracture and improve functionality as prior. Review of Systems Constitutional: Denied any fatigue denied any fever. Cardio vascular: denied any chest pain, palpitations Gastrointestinal: denied any nausea, vomiting, diarrhea Pulmonary: Denied any shortness of breath cough Neurologic denied any new focal deficits All inpatient medications were reviewed and appropriate changes in these medications as dictated in the interval history and assessment and plan. PHYSICAL EXAMINATION: GENERAL: The patient is A&O x3, NAD HEENT: EOMI, Sclerae anicteric, Moist Mucous membranes Neck: Supple, Non tender, No JVD PULMONARY: Equal breath souds B/L, No wheezing, No crackles. CARDIOVASCULAR: S1, S2 present. No murmurs, rubs, or gallops. ABDOMEN: Soft, nontender, nondistended, normoactive bowel sounds. No guarding or rebound tenderness. MUSCULOSKELETAL: +edema, No cyanosis. No clubbing. Normal ROM. Intact peripheral pulses. NEUROLOGICAL: CN 2-12 grossly intact. No FND Assessment and Plan Mechanical fall: with right knee contusion -Right side impacted femoral neck fracture Acute Metabolic encephalopathy: Resolved Lactic acidosis Elevated troponin: Demand ischemia Paroxysmal atrial fibrillation: On Coumadin, subtherapeutic Orthopedics recommending to hold coumadin because of the femoral neck fracture on the AP pelvis xray completed today. Hypertension Hyperlipidemia Chronic lower extremity edema Troponin trend remained flat, EKG unremarkable. Cardiology consulted, following. No further recommendations from their perspective hold aspirin, hydrochlorothiazide, resumed losartan, Lasix. Echocardiogram--EF 55 to 60%, RVSP 42, mild MR, mild AR. Acute kidney injury: Unknown baseline, likely CKD Avoid nephrotoxin Monitor renal function GI prophylaxis DVT prophylaxis warfarin will be held Full Code Patient scheduled to undergo right direct anterior hip hemiarthroplasty tomorrow with Dr. Rosenthal. Patient will require CEASAR on discharge and requires a 3 night inpatient hospital stay and for this reason she has been flipped in patient. Patient will be medically cleared to undergo surgery today with moderate risk due to the history of atrial fibrillation and advanced age. Risk vs. Benefit explained and patients quality of life will improve with surgical intervention of the right impacted femoral neck fracture and improve functionality as prior. Recommend to bladder scan patient to rule out urinary retention. Continue oral lasix. Warfarin has been held and INR today 1.5. The impression and plan of care has been dictated by Kadie Henderson, Nurse Practitioner as directed. Dr. Aram MD I have performed a history and physical examination and medical decision making of this patient, discussed the same with the dictator, and agree with the dictators assessment and plan as written, documented as a scribe. Based on total visit time, I have performed more than 50% of this visit. Objective - Vital Signs Vital signs: Vital Signs Temp 97.2 F L 07/13/24 07:00 Pulse 63 07/13/24 07:00 Resp 14 07/13/24 09:53 BP 180/68 07/13/24 07:00 Pulse Ox 99 07/13/24 07:00 FiO2 Intake & Output 07/12/24 07/13/24 07/13/24 18:59 06:59 18:59 Intake Total 236 Balance 236 Weight 62 kg Intake: Oral 236 Other: Voiding Method External Catheter External Catheter # Voids 1 2 - Labs CBC & Chem 7: 07/13/24 06:00 07/13/24 05:46 Labs: Abnormal Lab Results - Last 24 Hours (Table) 07/11/24 07/12/24 07/12/24 Range/Units 19:31 12:33 17:19 RBC (4.10-5.20) 10*6/uL Hgb (12.0-15.0) g/dL Hct (37.2-46.3) % MCV (80.0-97.0) fL Eosinophils # (0.04-0.35) 10*3/uL PT (10.0-12.5) sec INR (<1.2) Carbon Dioxide (22-30) mmol/L BUN (7-17) mg/dL Creatinine (0.52-1.04) mg/dL Glucose (74-99) mg/dL POC Glucose (mg/dL) 197 H 133 H 123 H (70-110) mg/dL 07/12/24 07/13/24 07/13/24 Range/Units 21:33 05:46 05:46 RBC (4.10-5.20) 10*6/uL Hgb (12.0-15.0) g/dL Hct (37.2-46.3) % MCV (80.0-97.0) fL Eosinophils # (0.04-0.35) 10*3/uL PT 15.7 H (10.0-12.5) sec INR 1.5 H (<1.2) Carbon Dioxide 32 H (22-30) mmol/L BUN 26 H (7-17) mg/dL Creatinine 1.32 H (0.52-1.04) mg/dL Glucose 123 H (74-99) mg/dL POC Glucose (mg/dL) 170 H (70-110) mg/dL 07/13/24 07/13/24 Range/Units 06:00 06:12 RBC 3.08 L (4.10-5.20) 10*6/uL Hgb 9.8 L (12.0-15.0) g/dL Hct 30.2 L (37.2-46.3) % MCV 98.1 H (80.0-97.0) fL Eosinophils # 0.76 H (0.04-0.35) 10*3/uL PT (10.0-12.5) sec INR (<1.2) Carbon Dioxide (22-30) mmol/L BUN (7-17) mg/dL Creatinine (0.52-1.04) mg/dL Glucose (74-99) mg/dL POC Glucose (mg/dL) 141 H (70-110) mg/dL Assessment and Plan Time with Patient: Less than 30
[2024-07-13 15:47] LABS: Glucose,Whole Blood 131 mg/dL (70-110)
[2024-07-13] MEDS ORDERED: PHENYLEPHRINE-0.9% NACL SYG 1,000 MCG/10 ML SYRINGE ONE (17:25)
[2024-07-13] MEDS ORDERED: GLYCOPYRROLATE 0.2 MG/ML 2 ML VIAL ONE (17:25)
[2024-07-13] MEDS ORDERED: TRANEXAMIC 1,000 MG/100ML-NACL PREMIX BAG ONE (17:25)
[2024-07-13] MEDS ORDERED: NEOSTIGMINE 1 MG/ML 10 ML VIAL ONE (17:25)
[2024-07-13] MEDS ORDERED: ROCURONIUM 10 MG/ML (5 ML VIAL) IV ONE (17:25)
[2024-07-13] MEDS ORDERED: LIDOCAINE 1% INJ 10MG/ML (20 ML MDV) ONE (17:25)
[2024-07-13] MEDS ORDERED: PROPOFOL 10 MG/ML 20 ML VIAL IV ONE (17:25)
[2024-07-13] MEDS ORDERED: SUCCINYLCHOLINE CHLORIDE 200 MG/10 ML VIAL IV ONE (17:25)
[2024-07-13] MEDS ORDERED: fentaNYL (PF) 50 MCG/ML 2 ML AMP ONE (17:25)
[2024-07-13] MEDS ORDERED: NALOXONE 0.4 MG/ML 1 ML VIAL IV PRN (17:27)
[2024-07-13] MEDS ORDERED: HYDROcodone/APAP 10-325MG 1 EACH TAB PO PRN (17:27)
[2024-07-13] MEDS ORDERED: HYDROmorphone 0.5 MG/0.5 ML SYRINGE IVP PRN ×3 (17:27)
[2024-07-13] MEDS: LACTATED RINGERS 1,000 ML IV ONE ×2 (17:30→19:10)
[2024-07-13] MEDS: SODIUM CHLORIDE 0.9% 100 ML with ceFAZolin 2,000 MG IV ONE (17:30)
[2024-07-13] MEDS: ROPIVACAINE/EPI/CLONIDINE/KET 50 ML SYRINGE MISCELLANE PRN (18:10)
--- NOTE | 2024-07-13 19:10 | P.OP ---
Date of Procedure: 07/13/24 Preoperative Diagnosis: 1. Right subcapital femoral neck fracture 2. Atrial fibrillation on Coumadin 3. Chronic lower extremity edema 4. Metabolic encephalopathy, resolved 5. Failure to thrive 6. Hypertension 7. Hyperlipidemia 8. Osteoporosis Postoperative Diagnosis: Same Procedure(s) Performed: Right direct anterior hip hemiarthroplasty Implants: Angelina Accolade C size #5 standard offset 48 mm outer diameter bipolar head 28 mm inner diameter bipolar head with a +0 mm neck Anesthesia: AUGUSTO, regional Surgeon: Rojelio Rosenthal Microstrategy Developer #1: Al Rajput Estimated Blood Loss (ml): 300 IV fluids (ml): 800 Pathology: none sent Condition: stable Disposition: PACU Indications for Procedure: The patient is a very pleasant 84-year-old female with multiple medical problems who was transferred to our hospital from [facility] last week. She had a fall and was having right sided leg pain. She was treated for atrial fibrillation and during the course of her hospitalization she had difficult time weightbearing on her right leg. Orthopedics was consulted and we obtained imaging of her right leg. She was found to have an acute subcapital femoral neck fracture. I spoke with the patient's son and we both agreed to proceed with a direct anterior hip hemiarthroplasty. I met with the patient and their family to discuss treatment options. The patient has a displaced femoral neck fracture and based on their age, activity level, and medical comorbidities I recommended a hip hemiarthroplasty to facilitate early mobilization. My recommendation was to perform the hemiarthro plasty through a direct anterior approach to help lower the risk of dislocation and improve postoperative recovery and use cemented fixation of the femoral component to reduce the risk of fracture and postoperative thigh pain. We discussed the potential risks and complications of a hemiarthroplasty for displaced femoral neck fracture at length. Risks discussed include are certainly not limited to risks from anesthesia, superficial infection requiring local wound care and possibly surgical debridement, deep periprosthetic joint infection and the treatment for this, damage to local blood vessels or nerves particularly the lateral femoral cutaneous nerve, intraoperative fracture, postoperative periprosthetic fracture, leg length discrepancy, hip dislocation, aseptic loosening, groin pain, thigh pain, progression of arthritis requiring conversion to total hip arthroplasty, complications related to cementing the component, an inability to regain preinjury level of function, DVT, PE, acute coronary event, stroke, pneumonia, urinary tract infection, failure to thrive, and possibly . The patient and their family understand that while these are the most common complications other less common complications are possible. They provided their verbal and written consent to go forward with surgery. Operative Findings: There was a hemarthrosis encountered immediately upon entering the hip capsule confirming an acute hip fracture. There was an obvious subcapital femoral neck fracture that was partially displaced. The patient had exceedingly poor bone qu ality in the proximal femur consistent with advanced osteoporosis. Description of Procedure: The patient was identified in the preoperative holding area and the correct hip was marked with my initials. I reviewed the procedure and consent with the patient. All of their questions were answered. The patient was then brought back into the operating room by anesthesia. While on the [facility] anesthesia was administered by the anesthesia team. Preoperative antibiotics and tranexamic acid were also given. After the patient was under anesthesia I examined their ankles to determine their preoperative leg length discrepancy. The skin over the anterior aspect of the hip was shaved to remove hair over the site of planned incision. Both feet and ankles were padded with webril and boots for the [place] were applied. The patient was then carefully transferred onto the [place] table. A perineal post was immediately placed. The arms were placed on arm holders and were well-padded. Both boots were secured to the spars on the [place] table. The patient was positioned so that the pelvis was centered over the post. Nonsterile drapes were applied. A timeout was performed identifying the correct patient, operative extremity, and procedure. At this point fluoroscopy was brought in to take preoperative images of the pelvis and operative hip. A metallic bar was used to create a bi-ischial line for use as a reference to leg length adjustments during the procedure. Global offset was also measured on both the operative and nonoperative leg. Fluoroscopy was then brought out and a pre-scrub using a chlorhexidine scrub brush was performed. The operative limb was then prepped and draped in the standard sterile fashion. An anterior longitudinal incision was made lateral and distal to the ASIS. The skin and subcutaneous tissues were incised sharply. The underlying tensor fascia was identified and incised in its midportion. The fascia was dissected free from the underlying muscle and the muscle belly was retracted. A blunt tipped cobra retractor was placed over the superior neck under the muscle fibers of the gluteus minimus. The deep enveloping fascia of the tensor was incised. The anterior leash of vessels were then identified and cauterized. The fascia between the rectus and the capsule was then incised and the pre-capsular fat was excised. A second Cobra was placed inferior to the neck. The interval between the rectus and iliocapsularis and the hip capsule was developed and a retractor was placed carefully over the anterior rim of the acetabulum. A T-shaped anterior capsulotomy was performed. A hemarthrosis consistent with a femoral neck fracture was identified. The superior capsular leaflet was left in place in the inferior capsular flap was excised. The Cobra retractors were placed intracapsularly. A displaced femoral neck fracture was then identified. We then made a femoral neck osteotomy according to preoperative and intraoperative templating and confirmed the level of the osteotomy using fluoroscopic imaging. The femoral head was removed, passed off to the back table, and sized. The superior capsular flap was excised. On inspection of the acetabulum there were minimal degenerative changes with intact cartilage. Attention was then turned to the femur. The remnant dorsal lateral capsule was excised. The short external rotators were visible and protected. A bone hook was used to confirm appropriate translation of the trochanter away from the acetabulum. The leg was then extended and adducted and the bone hook was used to elevate the femur for broaching. A box osteotome and blunt tipped canal sound was then utilized to gain access to the femoral canal. We then sequentially broached the femur in appropriate anteversion until torsional stability was achieved and the implant was felt to have reached the appropriate size to allow trialing. The neck cut was brought flush to the trial broach with a calcar planar. A trial neck and head were then placed onto the broach and the hip was atraumatically reduced under direct visualization. External rotation to 90 was performed to assess stability. Fluoroscopy was brought in. An AP and lateral fluoroscopic image of the proximal femur was obtained to assess position and fill of the trial broach. An AP of the pelvis was then obtained and matched to the preoperative image taken. A bi-ischial bar was then placed and measurements were taken to assess changes in length and offset. The hip was then carefully dislocated, the proximal femur was exposed, and the trial implants were removed. The proximal femur was then prepared for cementing. The canal was thoroughly irrigated with pulsatile lavage to remove blood and marrow contents. A cement restrictor was placed to a depth just distal to the tip of the final implant. Epinephrine-soaked gauze was then packed into the proximal femur. 2 bags of cement with antibiotics were then mixed using a centrifuge and placed into a cement gun. Anesthesia was notified that cementing was about to commence to make sure the patient was appropriately ventilated and hydrated. Once the cement had reached appropriate consistency, the cement gun was used to fill the canal in a retrograde fashion starting at the restrictor. Cement was then pressurized into the canal with a blue tipped linux engineer. The stem was then carefully introduced into the cement taking care to guide the implant into appropriate version. The stem was held in position until the cement had fully set. All extra cement was removed while the cement was hardening. The trunnion was cleansed and the final head was tapped into place to engage the Damon taper. The acetabulum was irrigated and visualized to be free of debris. The hip was carefully reduced. Stability was checked clinically with external rotation to 90 and there was no evidence of instability. Final fluoroscopic images were taken. The wound was then thoroughly irrigated with Irrisept. 3 L of sterile saline was irrigated through the wound using pulsatile lavage. Local anesthetic cocktail was injected into the soft tissues around the surgical field. A deep drain was placed. The wound was then closed in layers. A sterile dressing was placed over the surgical incision and drain site. The drapes were taken down and the patient was carefully transferred off of the [place] table. Following removal of the boots the leg lengths felt acceptable. The patient was then taken to recovery room having tolerated the procedure well. Al Rajput PA-C was required as a skilled assignment desk assistant due to the complexity of surgery for patient positioning, draping, exposure, retraction, closure of wound and application of dressing. PLAN: The patient can weight-bear as tolerated on the operative extremity. 2 doses of postoperative antibiotics. DVT prophylaxis -okay to resume anticoagulation tomorrow. Physical therapy for gait training.
[2024-07-13] MEDS: hydrALAZINE HCL 20 MG/ML 1 ML VIAL IVP STA (19:35)
--- NOTE | 2024-07-13 19:45 | FL ---
EXAMINATION TYPE: FL guidance operating room, XR Hip Limited RT DATE OF EXAM: 07/13/2024 7:29 PM COMPARISON: Pre Operative Images if available both CT/MRI or plain film CLINICAL INDICATION: Female, 84 years old with history of RT ANT HIP; TECHNIQUE: FL guidance operating room, XR Hip Limited RT, multiple fluoroscopic images provided for p rocedure. DAP: 1.2157 mGym2 Gycm2 uGym2 cGycm2 or equivalent. FINDINGS: Fluoroscopic images during internal fixation/arthroplasty demonstrate hardware in appropriate positio n. Hardware appears intact. No immediate complication identified. IMPRESSION: 1. No evidence for intraoperative complication. 2. Please see the operative/procedural note for further details. [facility], , 07/13/2024 7:42 PM
[2024-07-13 20:57] LABS: Basophils # (A) 0.06 10*3/uL (0.00-0.10); Basophils % (A) 0.5 %; Eosinophils # (A) 0.41 10*3/uL (0.04-0.35); Eosinophils % (A) 3.5 %; HCT 27.8 % (37.2-46.3); HGB 9.2 g/dL (12.0-15.0); Lymphocytes # (A) 0.82 10*3/uL (0.90-5.00); Lymphocytes % (A) 6.9 %; MCH 32.4 pg (27.0-32.0); MCHC 33.1 g/dL (32.0-37.0); MCV 97.9 fL (80.0-97.0); Mean Platelet Volume 10.9 fL (9.5-12.2); Monocytes # (A) 0.81 10*3/uL (0.20-1.00); Monocytes % (A) 6.9 %; Neutrophils # (A) 9.66 10*3/uL (1.80-7.70); Neutrophils % (A) 81.8 %; Platelet Count 202 10*3/uL (140-440); RBC 2.84 10*6/uL (4.10-5.20); RDW 13.7 % (11.5-14.5); WBC 11.81 10*3/uL (4.50-10.00)
[2024-07-13 20:59] LABS: Glucose,Whole Blood 177 mg/dL (70-110)
[2024-07-13] MEDS: SODIUM CHLORIDE 0.9% 1,000 ML IV ONE (21:21)
[2024-07-13] MEDS: ceFAZolin 2 GM in DEXTROSE 5% IN WATER 50 ML IVPB SCH (23:16)
[2024-07-14 06:20] LABS: Glucose,Whole Blood 137 mg/dL (70-110)
[2024-07-14 08:00] LABS: INR 1.4 (<1.2); Prothrombin Time 14.5 sec (10.0-12.5)
[2024-07-14 10:24] LABS: Basophils # (A) 0.05 X 10*3/uL (0.00-0.10); Basophils % (A) 0.6 %; Eosinophils % (A) 1.1 %; HCT 28.1 % (37.2-46.3); HGB 8.7 g/dL (12.0-15.0); Lymphocytes # (A) 0.83 X 10*3/uL (0.90-5.00); Lymphocytes % (A) 9.3 %; MCH 30.7 pg (27.0-32.0); MCV 99.3 FL (80.0-97.0); Mean Platelet Volume 11.4 FL (9.5-12.2); Monocytes # (A) 0.72 X 10*3/uL (0.20-1.00); Monocytes % (A) 8.1 %; NRBC Per 100 WBC 0 X 10*3/uL (0.00-0.01); Neutrophils # (A) 7.19 X 10*3/uL (1.80-7.70); Neutrophils % (A) 80.7 %; Platelet Count 210 X 10*3/uL (140-440); RBC 2.83 X 10*6/uL (4.10-5.20); RDW 14.1 % (11.5-14.5); WBC 8.91 X 10*3/uL (4.50-10.00)
--- NOTE | 2024-07-14 10:25 | P.PN ---
Subjective Progress Note Date: 07/14/24 07/14/2024 postop day #1 status post right hip hemiarthroplasty. No acute events overnight. Patient is doing well this morning. The pain in their hip is moderate. They deny chest pain or shortness of breath. Objective - Vital Signs Vital signs: Vital Signs Temp 98 F 07/14/24 07:50 Pulse 70 07/14/24 07:50 Resp 17 07/14/24 07:50 BP 165/89 07/14/24 07:50 Pulse Ox 98 07/14/24 07:50 FiO2 Intake & Output 07/13/24 07/14/24 07/14/24 18:59 06:59 18:59 Intake Total 1100 200 240 Output Total 600 100 Balance 500 100 240 Weight 57.5 kg Intake: IV 1100 200 Oral 240 Output: Urine 600 Estimated Blood Loss 100 Other: Voiding Method External Catheter Bedpan Diaper # Voids 1 # Bowel Movements 0 - Exam Patient was examined at bedside. Patient is resting comfortably in bed. No apparent distress. They are awake, alert and able to answer questions. Inspection: The surgical dressing is intact, there is no drainage or strikethrough. The skin surrounding the dressing is free of erythema. There is mild swelling in the operative thigh. Palpation: The operative calf is soft to compression. No calf tenderness. Neurovascular: Operative femoral nerve function is intact. The patient is able to actively plantarflex and dorsiflex their operative ankle and toes. Operative extremity sensation is intact to light touch throughout. Posterior tibial pulses 2+, but is warm and appears well-perfused. - Labs CBC & Chem 7: 07/13/24 20:18 07/13/24 05:46 Labs: Abnormal Lab Results - Last 24 Hours (Table) 07/13/24 07/13/24 07/13/24 Range/Units 15:45 20:18 20:58 WBC 11.81 H (4.50-10.00) 10*3/uL RBC 2.84 L (4.10-5.20) 10*6/uL Hgb 9.2 L (12.0-15.0) g/dL Hct 27.8 L (37.2-46.3) % MCV 97.9 H (80.0-97.0) fL MCH 32.4 H (27.0-32.0) pg Immature Gran # 0.05 H (0.00-0.04) 10*3/uL Neutrophils # 9.66 H (1.80-7.70) 10*3/uL Lymphocytes # 0.82 L (0.90-5.00) 10*3/uL Eosinophils # 0.41 H (0.04-0.35) 10*3/uL PT (10.0-12.5) sec INR (<1.2) POC Glucose (mg/dL) 131 H 177 H (70-110) mg/dL 07/14/24 07/14/24 Range/Units 05:44 06:19 WBC (4.50-10.00) 10*3/uL RBC (4.10-5.20) 10*6/uL Hgb (12.0-15.0) g/dL Hct (37.2-46.3) % MCV (80.0-97.0) fL MCH (27.0-32.0) pg Immature Gran # (0.00-0.04) 10*3/uL Neutrophils # (1.80-7.70) 10*3/uL Lymphocytes # (0.90-5.00) 10*3/uL Eosinophils # (0.04-0.35) 10*3/uL PT 14.5 H (10.0-12.5) sec INR 1.4 H (<1.2) POC Glucose (mg/dL) 137 H (70-110) mg/dL Assessment and Plan Assessment: 07/14/2024 status post right hip hemiarthroplasty. Right hand pain Multiple medical problems Plan: The patient can weight-bear as tolerated on the operative extremity. Leave surgical dressing in place. If your dressing becomes saturated with blood, there is drainage, or the dressing becomes loose please contact the office. Pysical therapy for gait training. DVT prophylaxis, will defer to internal medicine
[2024-07-14 10:48] LABS: BUN/Creat Ratio 17.36 Ratio (12.00-20.00); Blood Urea Nitrogen 24.3 mg/dL (9.0-27.0); Calcium 8.3 mg/dL (8.7-10.3); Carbon Dioxide 28.4 mmol/L (21.6-31.8); Chloride 100 mmol/L (96-109); Glucose 121 mg/dL (70-110); Potassium 4.4 mmol/L (3.5-5.5); Sodium 140 mmol/L (135-145)
[2024-07-14] MEDS: ENOXAPARIN 40 MG/0.4 ML SYRINGE SQ SCH (10:51)
[2024-07-14 12:03] LABS: Glucose,Whole Blood 201 mg/dL (70-110)
--- NOTE | 2024-07-14 16:12 | P.PN ---
Subjective Progress Note Date: 07/14/24 84-year-old female with past medical history significant for atrial fibrillation on Coumadin, hypertension, hyperlipidemia who was transferred from [facility] where patient was taken as a trauma. Patient lives at assisted living facility. Patient was ambulating and assisting her when walker got tangled and patient fell to the ground, patient landed on right side. Patient reported pain in her right knee, denied any head injury or loss of consciousness, denied any back pain,. CT head and CTA neck was negative for acute process. X-ray chest and knee was also negative for any acute process fractures or dislocation. Patient was noted to have acute kidney injury with increased lactate acid and UTI and elevated troponin at the facility and patient was transferred to [facility] for further evaluation and management. Patient is afebrile, heart rate 56, respiratory rate 15, blood pressure 144/58, saturating 99% on 2 L. WBC 6.0, hemoglobin 9.2, platelet 162. INR 1.4 Sodium 142 potassium 3.2 BUN 37 creatinine 1.4 troponin 0.041, 0.043 proBNP 4600. 07/12/2024 Patient evaluated today in follow up on the medical floor. Patient does require 3 night of inpatient hospital stay in order to DC to rehab. She is having some right sided knee pain from the knee contusion. 07/13/2024 Patient is evaluated today in follow up on the medical floor. Patient will be going for a right direct anterior hip arthroplasty with Dr. Rosenthal today. Patient was evaluated by cardiology on admission for the elevated troponin and it was atributed to the TOMMY and demand ischemia with no acute coronory syndrome. Had an echocardiogram this admission with EF EF 55 to 60%, RVSP 42, mild MR, mild AR. Renal function remains stable with BUN 26, creatinine 1.32. Sodium 138, potassium 3.7. Patient will be medically cleared to undergo surgery today with moderate risk due to the history of atrial fibrillation and advanced age. Risk vs. Benefit explained and patients quality of life will improve with surgical intervention of the right impacted femoral neck fracture and improve functionality as prior. 07/15/2023 Patient is evaluated today in follow up on the medical floor. Patient is po stoperative day #1 right total hip arthroplasty with Dr Rosenthal. Patient was moved to the cardiac unit post procedure. She been resumed on warfarin. INR today was 1.4 and we will give a small dose of Lovenox daily until INR is therapeutic. She was able to get up and sit up in the chair today. She is stating that she is having some pain mostly to the right knee and not so much the right hip surgical site. There is some swelling and significant bruising noted. I did discuss with the patient that she should not be refusing any pain medication she should keep up on the oral pain medication as well as icing the knee intermittently. She is agreeable to this plan and family the bedside is al so encouraging the patient. Reinforced using the incentive spirometer as well. If the pain continues to have increased swelling to the right knee would recommend a repeat xray to make sure there is no effusion that needs to be aspirated. Cerebellar blood cell count of 8.91, hemoglobin 8.7, sodium 140 potassium 4.4, BUN of 24.3 creatinine of 1.4. Review of Systems Constitutional: Denied any fatigue denied any fever. Cardio vascular: denied any chest pain, palpitations Gastrointestinal: denied any nausea, vomiting, diarrhea Pulmonary: Denied any shortness of breath cough Neurologic denied any new focal deficits All inpatient medications were reviewed and appropriate changes in these medi cations as dictated in the interval history and assessment and plan. PHYSICAL EXAMINATION: GENERAL: The patient is A&O x3, NAD HEENT: EOMI, Sclerae anicteric, Moist Mucous membranes Neck: Supple, Non tender, No JVD PULMONARY: Equal breath souds B/L, No wheezing, No crackles. CARDIOVASCULAR: S1, S2 present. No murmurs, rubs, or gallops. ABDOMEN: Soft, nontender, nondistended, normoactive bowel sounds. No guarding or rebound tenderness. MUSCULOSKELETAL: +edema, No cyanosis. No clubbing. Normal ROM. Intact peripheral pulses. NEUROLOGICAL: CN 2-12 grossly intact. No FND Assessment and Plan Mechanical fall: with right knee contusion -Right side impacted femoral neck fracture postoperative day 1 surgical repair Acute Metabolic encephalopathy: Resolved Lactic acidosis Elevated troponin: Demand ischemia Paroxysmal atrial fibrillation: On Coumadin, subtherapeutic Warfarin has been resumed today postsurgically and we will also add Lovenox daily until INR is therapeutic Hypertension Hyperlipidemia Chronic lower extremity edema Troponin trend remained flat, EKG unremarkable. Cardiology consulted, following. No further recommendations from their perspective hold aspirin, hydrochlorothiazide, resumed losartan, Lasix. Echocardiogram--EF 55 to 60%, RVSP 42, mild MR, mild AR. Acute kidney injury: Unknown baseline, likely CKD Avoid nephrotoxin Monitor renal function GI prophylaxis DVT prophylaxis warfarin will be held Full Code Patient will be medically cleared to undergo surgery today with moderate risk due to the history of atrial fibrillation and advanced age. Risk vs. Benefit explained and patients quality of life will improve with surgical intervention of the right impacted femoral neck fracture and improve functionality as prior. Patient is postoperative right direct anterior hip Ed arthroplasty patient will require CEASAR on discharge and requires a 3 night inpatient hospital stay and for this reason she has been flipped in patient. Patient will be able to discharge to subacute rehab the earliest on 07/15/2024. If she continues to do well postoperatively from her hip surgery she could potentially go to rehab tomorrow. She will continue on Lovenox daily as well as warfarin. INR today was 1.4. Her renal function is within normal limits today. Discussed with patient the importance of keeping up on the pain medication as well as icing her knee intermittently. She is agreeable to this plan. Patient to continue on a bowel regimen while she is using narcotics for pain management. Repeat blood work in the AM to monitor renal function. The impression and plan of care has been dictated by Kadie Henderson, Nurse Practitioner as directed. Dr. Aram MD I have performed a history and physical examination and medical decision making of this patient, discussed the same with the dictator, and agree with the dictators assessment and plan as written, documented as a scribe. Based on total visit time, I have performed more than 50% of this visit. Objective - Vital Signs Vital signs: Vital Signs Temp 97.9 F 07/14/24 14:05 Pulse 54 L 07/14/24 14:05 Resp 15 07/14/24 14:05 BP 149/71 07/14/24 14:05 Pulse Ox 99 07/14/24 14:05 FiO2 Intake & Output 07/13/24 07/14/24 07/14/24 18:59 06:59 18:59 Intake Total 1100 200 240 Output Total 600 100 Balance 500 100 240 Weight 57.5 kg Intake: IV 1100 200 Oral 240 Output: Urine 600 Estimated Blood Loss 100 Other: Voiding Method External Catheter Bedpan Diaper # Voids 1 # Bowel Movements 0 - Labs CBC & Chem 7: 07/14/24 05:44 07/14/24 05:44 Labs: Abnormal Lab Results - Last 24 Hours (Table) 07/13/24 07/13/24 07/14/24 Range/Units 20:18 20:58 05:44 WBC 11.81 H (4.50-10.00) 10*3/uL RBC 2.84 L (4.10-5.20) 10*6/uL Hgb 9.2 L (12.0-15.0) g/dL Hct 27.8 L (37.2-46.3) % MCV 97.9 H (80.0-97.0) fL MCH 32.4 H (27.0-32.0) pg MCHC (32.0-37.0) g/dL Immature Gran # 0.05 H (0.00-0.04) 10*3/uL Neutrophils # 9.66 H (1.80-7.70) 10*3/uL Lymphocytes # 0.82 L (0.90-5.00) 10*3/uL Eosinophils # 0.41 H (0.04-0.35) 10*3/uL PT 14.5 H (10.0-12.5) sec INR 1.4 H (<1.2) Est GFR (CKD-EPI) (>=60) Glucose (70-110) mg/dL POC Glucose (mg/dL) 177 H (70-110) mg/dL Calcium (8.7-10.3) mg/dL 07/14/24 07/14/24 07/14/24 Range/Units 05:44 05:44 06:19 WBC (4.50-10.00) 10*3/uL RBC 2.83 L (4.10-5.20) 10*6/uL Hgb 8.7 L (12.0-15.0) g/dL Hct 28.1 L (37.2-46.3) % MCV 99.3 H (80.0-97.0) fL MCH (27.0-32.0) pg MCHC 31.0 L (32.0-37.0) g/dL Immature Gran # (0.00-0.04) 10*3/uL Neutrophils # (1.80-7.70) 10*3/uL Lymphocytes # 0.83 L (0.90-5.00) 10*3/uL Eosinophils # (0.04-0.35) 10*3/uL PT (10.0-12.5) sec INR (<1.2) Est GFR (CKD-EPI) 37 L (>=60) Glucose 121 H (70-110) mg/dL POC Glucose (mg/dL) 137 H (70-110) mg/dL Calcium 8.3 L (8.7-10.3) mg/dL 04/24/ Range/Units 12:01 WBC (4.50-10.00) 10*3/uL RBC (4.10-5.20) 10*6/uL Hgb (12.0-15.0) g/dL Hct (37.2-46.3) % MCV (80.0-97.0) fL MCH (27.0-32.0) pg MCHC (32.0-37.0) g/dL Immature Gran # (0.00-0.04) 10*3/uL Neutrophils # (1.80-7.70) 10*3/uL Lymphocytes # (0.90-5.00) 10*3/uL Eosinophils # (0.04-0.35) 10*3/uL PT (10.0-12.5) sec INR (<1.2) Est GFR (CKD-EPI) (>=60) Glucose (70-110) mg/dL POC Glucose (mg/dL) 201 H (70-110) mg/dL Calcium (8.7-10.3) mg/dL Assessment and Plan Time with Patient: Less than 30
[2024-07-14 17:12] LABS: Glucose,Whole Blood 165 mg/dL (70-110)
[2024-07-14] MEDS: WARFARIN 3 MG TAB PO ONE (17:22)
[2024-07-14 20:06] LABS: Glucose,Whole Blood 199 mg/dL (70-110)
[2024-07-15 01:35] VITALS: TEMP 98.5
[2024-07-15 04:54] LABS: INR 1.5 (<1.2); Prothrombin Time 15.5 sec (10.0-12.5)
[2024-07-15 06:03] LABS: Glucose,Whole Blood 152 mg/dL (70-110)
[2024-07-15 07:43] VITALS: BP 150/81; PULSE 59; RESP 20
[2024-07-15] MEDS: ENOXAPARIN 30 MG/0.3 ML SYRINGE SQ SCH (09:05)
--- NOTE | 2024-07-15 10:44 | P.PN ---
Subjective HISTORY OF PRESENT ILLNESS: This is an 84-year-old female, does not follow in our office with a past medical history of persistent atrial fibrillation, hypertension, hyperlipidemia. We have been asked to evaluate the patient for elevated troponins. Patient was initially seen at [facility] after a fall when her walker was tangled up with her 's walker. She had a fall onto her right side with right knee pain. No head injury. Patient did not lose consciousness. She underwent CAT scan of the head and neck as well as x-rays of the chest and knee that were all negative. She was found to have TOMMY and lactic acidosis and UTI. Her troponin was elevated and thus patient was transferred to [facility] for further evaluation. Patient is unable to provide any history. Blood pressure 150/55, heart rate in the 50s, pulse ox 95% on 2 L nasal cannula, afebrile. Patient is status post 1 L of IV fluids. She is seen today in the emergency center waiting for a bed on the observation unit. -EKG: Atrial fibrillation at 60 bpm. -Chest x-ray: Negative reported at [facility]. -Laboratory studies: WBC 10, hemoglobin 11.2, sodium 135, potassium 3.5, CO2 35, BUN 50 creatinine 1.53. Lactic acid 2.8 followed by 2.0. Troponin 0.031, 0.042 and 0.043. Liver function test are within normal limits. -Home cardiac medications: Aspirin 81 mg daily, Lasix 40 mg daily, hydrochlorothiazide 25 mg daily, losartan 100 mg daily, potassium chloride 20 mill equivalents daily, pravastatin 40 mg at bedtime, propranolol 120 mg daily, warfarin 8 mg daily. 07/09 Patient seen and examined on the observation unit. Blood pressure 147/58, heart rate in the 50s and 60s, pulse ox 99% on 2 L nasal cannula. Patient has been afebrile. Triglycerides 80, cholesterol 156, LDL 46, proBNP 4601. A1c 5.6 INR 1.4. Patient's mental status is much improved from yesterday. She states she feels well this morning except that her leg is bothering her from the fall. Patient denies chest pain no chest pressure, no shortness of breath. Noted that her previous creatinine was 1.6 at [facility] we will plan to resume Lasix tomorrow. 07/10 Patient seen and examined. Yesterday we resumed her back on losartan at her home dose and continue to hold aspirin and hydrochlorothiazide. We resumed back her Lasix starting today. Echocardiogram reveals EF of 55 to 60%, RVSP 42, mild mitral regurgitation, mild aortic regurgitation, no pericardial effusion. Results of the echocardiogram were reviewed with the patient. She states she is feeling well today, no chest pain no chest pressure no shortness of breath. She is complaining of knee pain that is preventing her from walking. 07/15/2024 Cardiology was reconsulted secondary to run of nonsustained ventricular tachycardia. Patient examined this morning the bedside. She denies any chest pain or pressure. Denies any shortness of breath. Denies any palpitations. Vital signs are stable. Telemetry reviewed revealing possible ventricular tachycardia versus A-fib with aberrancy PHYSICAL EXAM: VITAL SIGNS: Reviewed. GENERAL: Well-developed in no acute distress. NECK: Supple. No JVD or thyromegaly LUNGS: Respirations even and unlabored. Lungs essentially clear to auscultation bilaterally. HEART: Regular rate and rhythm. S1 and S2 heard. EXTREMITIES: Normal range of motion. No clubbing or cyanosis. Peripheral pulses intact. No lower extremity edema ASSESSMENT: Mechanical fall with no LOC Right hip fracture Nonsustained ventricular tachycardia versus A-fib with aberrancy Flat troponin elevation secondary to acute kidney injury, no evidence of myocardial injury or ischemia Acute kidney injury Lactic acidosis Persistent atrial fibrillation with controlled rate Failure to thrive Hypertension Hyperlipidemia Chronic lower extremity edema Possible metabolic encephalopathy, resolved PLAN: Continue Coumadin. Monitor INR Continue additional cardiac medications including Lasix, losartan, Pravachol, and propranolol Telemetry reviewed with possible episode of nonsustained VT. However appears to be more A-fib with aberrancy Continue telemetry monitoring Patient is currently stable from a cardiac perspective Nurse practitioner note has been reviewed by physician. Signing provider agrees with the documented findings, assessment, and plan of care documented by [employer] as a scribe. Objective - Vital Signs Vital signs: Vital Signs Temp 98.5 F 07/15/24 06:52 Pulse 59 L 07/15/24 06:52 Resp 20 07/15/24 06:52 BP 150/81 07/15/24 06:52 Pulse Ox 97 07/15/24 06:52 FiO2 Intake & Output 04/24/25 04/25/25 04/25/25 18:59 06:59 18:59 Intake Total 240 Balance 240 Weight 70 kg Intake: Oral 240 Other: Voiding Method Bedside Commode Bedside Commode Diaper Diaper # Voids 2 1 - Labs CBC & Chem 7: 07/14/24 05:44 07/14/24 05:44 Labs: Abnormal Lab Results - Last 24 Hours (Table) 07/14/24 07/14/24 07/14/24 Range/Units 05:44 12:01 17:10 PT (10.0-12.5) sec INR (<1.2) Est GFR (CKD-EPI) 37 L (>=60) Glucose 121 H (70-110) mg/dL POC Glucose (mg/dL) 201 H 165 H (70-110) mg/dL Calcium 8.3 L (8.7-10.3) mg/dL 07/14/24 07/15/24 07/15/24 Range/Units 20:04 03:50 06:01 PT 15.5 H (10.0-12.5) sec INR 1.5 H (<1.2) Est GFR (CKD-EPI) (>=60) Glucose (70-110) mg/dL POC Glucose (mg/dL) 199 H 152 H (70-110) mg/dL Calcium (8.7-10.3) mg/dL
[2024-07-15 11:17] LABS: BUN/Creat Ratio 19.79 Ratio (12.00-20.00); Blood Urea Nitrogen 27.7 mg/dL (9.0-27.0); Calcium 8.4 mg/dL (8.7-10.3); Carbon Dioxide 25.3 mmol/L (21.6-31.8); Chloride 100 mmol/L (96-109); Glucose 138 mg/dL (70-110); Magnesium 1.7 mg/dL (1.5-2.4); Sodium 138 mmol/L (135-145)
[2024-07-15 12:12] LABS: Glucose,Whole Blood 164 mg/dL (70-110)
--- NOTE | 2024-07-15 13:26 | P.PN ---
Subjective Progress Note Date: 07/15/24 Postop day #2 status post right hip hemiarthroplasty. No acute events overnight. Patient is doing well this morning. The pain in their hip is mild. They have not complained about knee pain today per nursing. Objective - Vital Signs Vital signs: Vital Signs Temp 98.5 F 07/15/24 06:52 Pulse 59 L 07/15/24 06:52 Resp 20 07/15/24 06:52 BP 150/81 07/15/24 06:52 Pulse Ox 97 07/15/24 06:52 FiO2 Intake & Output 07/14/24 07/15/24 07/15/24 18:59 06:59 18:59 Intake Total 240 Balance 240 Weight 70 kg Intake: Oral 240 Other: Voiding Method Bedside Commode Bedside Commode Diaper Diaper # Voids 2 1 - Exam Patient was examined at bedside. Patient is resting comfortably in chair. No apparent distress. They are awake, alert and able to answer questions. Inspection: The surgical dressing is intact, there is no drainage or str ikethrough. The skin surrounding the dressing is free of erythema. There is mild swelling in the operative thigh. Hematoma and ecchymosis over anterior right knee. Palpation: The operative calf is soft to compression. No calf tenderness. Neurovascular: Operative femoral nerve function is intact. The patient is able to actively plantarflex and dorsiflex their operative ankle and toes. Operative extremity sensation is intact to light touch throughout. Posterior tibial pulses 2+, but is warm and appears well-perfused. - Labs CBC & Chem 7: 07/14/24 05:44 07/15/24 06:43 Labs: Abnormal Lab Results - Last 24 Hours (Table) 07/14/24 07/14/24 07/15/24 Range/Units 17:10 20:04 03:50 PT 15.5 H (10.0-12.5) sec INR 1.5 H (<1.2) Anion Gap (4.00-12.00) mmol/L BUN (9.0-27.0) mg/dL Est GFR (CKD-EPI) (>=60) Glucose (70-110) mg/dL POC Glucose (mg/dL) 165 H 199 H (70-110) mg/dL Calcium (8.7-10.3) mg/dL 07/15/24 07/15/24 07/15/24 Range/Units 06:01 06:43 12:10 PT (10.0-12.5) sec INR (<1.2) Anion Gap 12.70 H (4.00-12.00) mmol/L BUN 27.7 H (9.0-27.0) mg/dL Est GFR (CKD-EPI) 37 L (>=60) Glucose 138 H (70-110) mg/dL POC Glucose (mg/dL) 152 H 164 H (70-110) mg/dL Calcium 8.4 L (8.7-10.3) mg/dL Assessment and Plan Assessment: 07/13/2024 status post right hip hemiarthroplasty. Right hip pain Right knee pain Multiple medical problems Plan: The patient can weight-bear as tolerated on the operative extremity. Leave surgical dressing in place for 2 weeks postop. If your dressing becomes saturated with blood, there is drainage, or the dressing becomes loose please contact the office. Patient continues to have swelling over the anterior knee, but do not appreciate an effusion. Would not recommend aspiration or injection at this time. Would not recommend cortisone injection until the right hip surgical incision is h ealed. Physical therapy for gait training. DVT prophylaxis, will defer to internal medicine. Patient may transfer to rehab from an orthopedic standpoint.
--- NOTE | 2024-07-15 13:41 | P.DS ---
Providers Date of admission: 07/12/24 09:40 Expected date of discharge: 07/15/24 Attending physician: Hilaria Lopez Consults: 07/08/24 03:48 Consult Physician Urgent Consulting Provider: [facility] Consult Reason/Comments: elevated trop Do you want consulting provider notified?: Yes 07/11/24 13:54 Consult Physician Routine Consulting Provider: Rojelio Rosenthal Consult Reason/Comments: right knee pain, unable to bear weight, needs clearance for return to [facility] Do you want consulting provider notified?: Yes 07/15/24 06:12 Consult Physician Routine Consulting Provider: Abdi Fitch Consult Reason/Comments: run on VTACH Do you want consulting provider notified?: Yes, Notify in am Primary care physician: FARNAZ Gallegos Hospital Course: Final diagnosis Mechanical fall: with right knee contusion, imaging showed a right sided impacted femoral neck fracture, status post right total hip arthroplasty Acute Metabolic encephalopathy: Resolved Lactic acidosis on admission, resolved Elevated troponin: Demand ischemia per cardiology Paroxysmal atrial fibrillation: On Coumadin, subtherapeutic, INR is 1.5 today Hypertension Hyperlipidemia Chronic lower extremity edema Acute kidney injury: Unknown baseline, likely CKD, improving GI prophylaxis DVT prophylaxis Full Code Discharge disposition Patient is being discharged in a stable condition with guarded prognosis to [facility]. Patient will follow-up with Dr. Antonette Navarro in the outpatient setting upon discharge. Patient is to continue with close outpatient follow-up with orthopedics as scheduled. Total time taken is greater than 35 minutes. Hospital course 84-year-old female with past medical history significant for atrial fibrillation on Coumadin, hypertension, hyperlipidemia who was transferred from [facility] where patient was taken as a trauma. Patient lives at assisted living facility. Patient was ambulating and assisting her when walker got tangled and patient fell to the ground, patient landed on right side. Patient reported pain in her right knee, denied any head injury or loss of consciousness, denied any back pain,. CT head and CTA neck was negative for acute process. X-ray chest and knee was also negative for any acute process fractures or dislocation. Patient was noted to have acute kidney injury with increased lactate acid and UTI and elevated troponin at the facility and patient was transferred to [facility] for further evaluation and management. Patient is afebrile, heart rate 56, respiratory rate 15, blood pressure 144/58, saturating 99% on 2 L. WBC 6.0, hemoglobin 9.2, platelet 162. INR 1.4 Sodium 142 potassium 3.2 BUN 37 creatinine 1.4 troponin 0.041, 0.043 proBNP 4600. 07/12/2024 Patient evaluated today in follow up on the medical floor. Patient does require 3 night of inpatient hospital stay in order to DC to rehab. She is having some right sided knee pain from the knee contusion. 07/13/2024 Patient is evaluated today in follow up on the medical floor. Patient will be going for a right direct anterior hip arthroplasty with Dr. Rosenthal today. Patient was evaluated by cardiology on admission for the elevated troponin and it was atributed to the TOMMY and demand ischemia with no acute coronory syndrome. Had an echocardiogram this admission with EF EF 55 to 60%, RVSP 42, mild MR, mild AR. Renal function remains stable with BUN 26, creatinine 1.32. Sodium 138, potassium 3.7. Patient will be medically cleared to undergo surgery today with moderate risk due to the history of atrial fibrillation and advanced age. Risk vs. Benefit explained and patients quality of life will improve with surgical intervention of the right impacted femoral neck fracture and improve functionality as prior. 07/14/2024 Patient is evaluated today in follow up on the medical floor. Patient is postoperative day #1 right total hip arthroplasty with Dr Rosenthal. Patient was moved to the cardiac unit post procedure. She been resumed on warfarin. INR today was 1.4 and we will give a small dose of Lovenox daily until INR is therapeutic. She was able to get up and sit up in the chair today. She is stating that she is having some pain mostly to the right knee and not so much the right hip surgical site. There is some swelling and significant bruising noted. I did discuss with the patient that she should not be refusing any pain medication she should keep up on the oral pain medication as well as icing the knee intermittently. She is agreeable to this plan and family the bedside is also encouraging the patient. Reinforced using the incentive spirometer as well. If the pain continues to have increased swelling to the right knee would recommend a repeat xray to make sure there is no effusion that needs to be aspirated. Cerebellar blood cell count of 8.91, hemoglobin 8.7, sodium 140 potassium 4.4, BUN of 24.3 creatinine of 1.4. 07/15/2024 Patient is seen and evaluated in follow-up today status post right total hip arthroplasty. Patient doing relatively well Coumadin has been resumed and patient's INR is 1.5 today. Patient is continued on Lovenox for bridging and recommend INR to be 2-3. Coumadin to continue with pharmacy to dose. Patient also noted to have continued ongoing right knee swelling although appears slightly improved patient reports minimal pain to the area at this time. Patient is afebrile with no reports of chest pain or shortness of breath. Patient reports has been tolerating diet without nausea or vomiting noted. Patient has been accepted at [facility] and will be going there today. Patient to follow-up with orthopedics outpatient. PHYSICAL EXAMINATION: GENERAL: The patient is A&O x3, well-developed, elderly appearing, hard of hearing HEENT: EOMI, Sclerae anicteric, Moist Mucous membranes Neck: Supple, Non tender, No JVD PULMONARY: Equal breath souds B/L, No wheezing, No crackles. CARDIOVASCULAR: S1, S2 present. No murmurs, rubs, or gallops. ABDOMEN: Soft, nontender, nondistended, normoactive bowel sounds. No guarding or rebound tenderness. MUSCULOSKELETAL: +edema, No cyanosis. No clubbing. Normal ROM. Intact peripheral pulses. Bruising noted to the right knee with some swelling, improving NEUROLOGICAL: CN 2-12 grossly intact. No FND Please refer to medication reconciliation sheet for a list of medications. The impression and plan of care has been dictated by Nesha Coulter, Nurse Practitioner as directed. Dr. Aram MD I have performed a history and examination and MDM of this patient, discussed the same with the dictator, and agree with the dictator's assessment and plan as written ,documented as a scribe. Based on total visit time, I have performed more than 50% of the visit. Patient Condition at Discharge: Fair Plan - Discharge Summary Discharge Rx Participant: No New Discharge Prescriptions: New INSULIN LISPRO (HumaLOG) [HumaLOG] 0 unit SQ AC-TID each Enoxaparin [Lovenox] 30 mg SQ DAILY #5 each Continue Sertraline [Zoloft] 50 mg PO DAILY Primidone [Mysoline] 100 mg PO HS Primidone 50 mg PO DAILY Aspirin 81 mg PO DAILY Ondansetron Odt [Zofran ODT] 4 mg PO Q4H PRN PRN Reason: Nausea And Vomiting Magnesium Hydroxide [Milk of Magnesia] 2,400 mg PO DAILY PRN PRN Reason: Constipation guaiFENesin SYRUP 100MG/5ML [Robitussin] 100 mg PO Q4H PRN PRN Reason: cough & congestion Calcium Carbonate [Tums] 1,000 mg PO Q2H PRN MDD 4 doses PRN Reason: Heartburn Sennosides/Docusate Sodium [Senna Plus 8.6-50 mg Tablet] 1 tab PO DAILY PRN PRN Reason: Constipation bisacodyL [Dulcolax] 10 mg RECTAL DAILY PRN PRN Reason: Constipation Acetaminophen Tab [Tylenol] 650 mg PO Q4H PRN PRN Reason: Pain Or Fever > 100.5 Propylene Glycol/Peg 400 [Systane Ultra 0.4-0.3% Eye Drp] 1 drop BOTH EYES TID Propranolol HCl [Propranolol HCl ER] 120 mg PO DAILY Pravastatin Sodium [Pravachol] 40 mg PO HS metFORMIN HCL [Glucophage] 1,000 mg PO BID Potassium Chloride [Klor-Con M20] 20 meq PO DAILY Losartan Potassium [Cozaar] 100 mg PO DAILY Furosemide [Lasix] 40 mg PO DAILY Ipratropium-Albuterol Nebulize [Duoneb 0.5 mg-3 mg/3 ml Soln] 3 ml INHALATION RT-Q6H PRN PRN Reason: Shortness Of Breath polyethylene glycoL 3350 [Miralax] 17 gm PO DAILY PRN PRN Reason: Constipation Changed Warfarin Sodium 10 mg PO DAILY@1700 #0 Discontinued hydroCHLOROthiazide [Hydrodiuril] 25 mg PO DAILY Discharge Medication List Acetaminophen Tab [Tylenol] 650 mg PO Q4H PRN 07/08/24 [History] Aspirin 81 mg PO DAILY 07/08/24 [History] Calcium Carbonate [Tums] 1,000 mg PO Q2H PRN MDD 4 doses 07/08/24 [History] Furosemide [Lasix] 40 mg PO DAILY 07/08/24 [History] Ipratropium-Albuterol Nebulize [Duoneb 0.5 mg-3 mg/3 ml Soln] 3 ml INHALATION RT-Q6H PRN 07/08/24 [History] Losartan Potassium [Cozaar] 100 mg PO DAILY 07/08/24 [History] Magnesium Hydroxide [Milk of Magnesia] 2,400 mg PO DAILY PRN 07/08/24 [History] Ondansetron Odt [Zofran ODT] 4 mg PO Q4H PRN 07/08/24 [History] Potassium Chloride [Klor-Con M20] 20 meq PO DAILY 07/08/24 [History] Pravastatin Sodium [Pravachol] 40 mg PO HS 07/08/24 [History] Primidone 50 mg PO DAILY 07/08/24 [History] Primidone [Mysoline] 100 mg PO HS 07/08/24 [History] Propranolol HCl [Propranolol HCl ER] 120 mg PO DAILY 07/08/24 [History] Propylene Glycol/Peg 400 [Systane Ultra 0.4-0.3% Eye Drp] 1 drop BOTH EYES TID 07/08/24 [History] Sennosides/Docusate Sodium [Senna Plus 8.6-50 mg Tablet] 1 tab PO DAILY PRN 07/08/24 [History] Sertraline [Zoloft] 50 mg PO DAILY 07/08/24 [History] bisacodyL [Dulcolax] 10 mg RECTAL DAILY PRN 07/08/24 [History] guaiFENesin SYRUP 100MG/5ML [Robitussin] 100 mg PO Q4H PRN 07/08/24 [History] metFORMIN HCL [Glucophage] 1,000 mg PO BID 07/08/24 [History] polyethylene glycoL 3350 [Miralax] 17 gm PO DAILY PRN 07/08/24 [History] Warfarin Sodium 10 mg PO DAILY@1700 #0 07/11/24 [Rx] Enoxaparin [Lovenox] 30 mg SQ DAILY #5 each 07/15/24 [Rx] INSULIN LISPRO (HumaLOG) [HumaLOG] 0 unit SQ AC-TID each 07/15/24 [Rx] Follow up Appointment(s)/Referral(s): None,Stated [REFERRING] - 1-2 days (Please call a primary care provider for follow-up appointment.) Rojelio Rosenthal MD [Medical Doctor] - 07/25/24 2:10 pm Ambulatory/Diagnostic Orders: Basic Metabolic Panel [LAB.AMB] Time Frame: 3 Days, Location: None Selected Prothrombin Time INR [LAB.AMB] Time Frame: 2 Days, Location: None Selected Activity/Diet/Wound Care/Special Instructions: Patient is going to [facility] Activity as tolerated per orthopedic recommendations Continue Coumadin therapy and current INR is 1.5 today, continue current regimen and follow-up on repeat INR in 1 to 2 days, pharmacy to dose Coumadin for an INR of 2-3 therapeutic Follow-up with orthopedics outpatient Continue to elevate lower extremities while at rest Continue monitoring Accu-Cheks AC and at bedtime and use sliding scale NovoLog sliding scale 0-150 equals 0 units 151-200 equals 2 units 201-250 equals 4 units 251-300 equals 6 units 301-350 equals 8 units 351-400 equals 10 units Please notify provider if blood sugar is 400 or above Continue with diabetic diet Encourage incentive spirometer use 1. Weight-bear as tolerated on your operative extremity unless instructed otherwise. Use a walker or other assistive device to ambulate. 2. Leave surgical dressing in place. If your dressing becomes saturated with blood, there is drainage, or the dressing becomes loose please contact the office. 3. It is okay to shower with your surgical dressing, but do not submerge in water (no hot tubs, bath's, swimming etc.) 4. Take your blood clot prevention medication as prescribed (aspirin, Eliquis, Xarelto, and Plavix are commonly prescribed medications for blood clot prevention) 5. While taking [place] or Percocet for pain take a stool softener (Ex: Colace) and drink lots of water. 6. Keep all follow-up appointments as scheduled. You will usually be seen in 1-2 weeks following surgery. 7. Please contact the office with any questions or concerns [phone] Discharge Disposition: TRANSFER TO SNF/ECF
[2024-07-15] MEDS: HYDROcodone/APAP 5-325MG 1 EACH TAB PO PRN (14:36)
[2024-07-15] MEDS ORDERED: WARFARIN 3 MG TAB PO ONE (18:00)
== END 2024-07-15 15:06 | DRG 521 ==
LOC: EC 02:18 → 6NMEDSUR 03:49 → OBSVTOIN 07-12 09:40 → 4SSUR 07-13 16:18
PROVIDERS: ADMIT Hospitalist; ATTEND Hospitalist
PROC: 0SRR0J9 Replacement of Right Hip Joint, Femoral Surface with Synthetic Substitute, Cemented, Open Approach (ICD-10-PCS; principal; 2024-07-13 07:30)
DX: S72.011A Unspecified intracapsular fracture of right femur, initial encounter for closed fracture (principal); G93.41 Metabolic encephalopathy; E87.20 Acidosis, unspecified; D68.32 Hemorrhagic disorder due to extrinsic circulating anticoagulants; M80.851A Other osteoporosis with current pathological fracture, right femur, initial encounter for fracture; T45.515A Adverse effect of anticoagulants, initial encounter; I12.9 Hypertensive chronic kidney disease with stage 1 through stage 4 chronic kidney disease, or unspecified chronic kidney disease; N18.9 Chronic kidney disease, unspecified; I24.89 Other forms of acute ischemic heart disease; I48.19 Other persistent atrial fibrillation; I47.20 Ventricular tachycardia, unspecified; E78.5 Hyperlipidemia, unspecified; N17.9 Acute kidney failure, unspecified; N39.0 Urinary tract infection, site not specified; R62.7 Adult failure to thrive; S80.01XA Contusion of right knee, initial encounter; R60.0 Localized edema; W01.0XXA Fall on same level from slipping, tripping and stumbling without subsequent striking against object, initial encounter; Z79.82 Long term (current) use of aspirin; Z79.899 Other long term (current) drug therapy; Z79.84 Long term (current) use of oral hypoglycemic drugs; Z79.01 Long term (current) use of anticoagulants; Y92.009 Unspecified place in unspecified non-institutional (private) residence as the place of occurrence of the external cause
CPT/HCPCS: 36415; 72170; 73501; 80048; 80053; 80061; 83036; 83605; 83735; 83880; 84443; 84484; 85025; 85610; 93306; 94760; 96360; 96361; 99285